=== PATIENT | female | born 1960 | race Hispanic/Latino ===

== ENCOUNTER 2018-06-14 18:54 | Inpatient (IN) | payer BC ==
--- NOTE | 2018-06-14 19:04 | C.PDOC ---
History Of Present Illness 57 year old female with no PMHx brought in by friends for a complaint of generalized weakness, not feeling well, and decreased appetite. As per friend, patient's neighbors noticed she has not appeared well over the past 4 days. Patient has a Hx of anxiety and depression, she used to see a psychiatrist and was on medication but she stopped taking them one year ago. Patient does not believe symptoms are due to depression but friend states symptoms are similar to her past depression. Denies chest pain, abdominal pain, SOB, fever, chills, nausea, vomiting, urinary symptoms, suicidal ideation, or homicidal ideation. Time Seen by Provider: 06/14/18 19:00 History Per: Patient, Other (Friend at bedside) History/Exam Limitations: no limitations Onset/Duration Of Symptoms: Days Current Symptoms Are (Timing): Still Present Recent travel outside of the [place]: No Past Medical History Reviewed: Historical Data, Nursing Documentation, Vital Signs - Medical History PMH: HTN Family History: States: Unknown Family Hx - Social History Hx Alcohol Use: No Hx Substance Use: No Review Of Systems Constitutional: Positive for: Weakness. Negative for: Fever, Chills Cardiovascular: Negative for: Chest Pain Respiratory: Negative for: Shortness of Breath Gastrointestinal: Negative for: Nausea, Vomiting, Abdominal Pain Genitourinary: Negative for: Dysuria, Hematuria Psych: Negative for: Suicidal ideation, Other (Homicidal ideation) Physical Exam - Physical Exam Appears: Non-toxic Skin: Normal Color, Warm, Dry Head: Atraumatic, Normacephalic Eye(s): bilateral: Normal Inspection, PERRL, EOMI Ear(s): Bilateral: Normal Nose: Normal Oral Mucosa: Moist Tongue: Normal Appearing Lips: Normal Appearing Throat: Normal, No Erythema, No Exudate, No Drooling, No Mass Neck: Normal, Supple, Other (no meningeal signs) Chest: Symmetrical, No Tenderness Cardiovascular: Rhythm Regular Respiratory: Normal Breath Sounds, No Rales, No Rhonchi, No Wheezing Gastrointestinal/Abdominal: Soft, No Tenderness Back: Normal Inspection, No CVA Tenderness, No Vertebral Tenderness, No Decreased ROM, No Paraspinal Tenderness Extremity: Normal ROM (x4) Extremity: Left: Atraumatic Pulses: Left Dorsalis Pedis: Normal, Right Dorsalis Pedis: Normal Neurological/Psych: Oriented x3, Normal Speech, Normal Cognition, Normal Cranial Nerves, No Cerebellar Signs, Normal Motor, Normal Sensation Gait: Steady Extremity: Right: No Drift, Left: No Drift, Upper: No Drift, Lower: No Drift ED Course And Treatment - Laboratory Results Result Diagrams: 06/14/18 19:39 06/14/18 19:39 Medical Decision Making Medical Decision Makin yr old F w/ hx of depression p/w friends w/ concern for pt. Per pt and friends bedside pt has had decreased PO intake x4d, and has been refusing to go outside. No SI or HI, but notable flat affect. No FND or neurological abnl on my exam. No other complaints. EK, sinus tachy, no STEMI Pending medical clearance 1017 Dehydrated by labs: Cr WNL. Hemoconentrated. Fluids running. Oral hydration as well. in NAD, UA+ will RX Pt medically clear To be admitted per Crisis to Dr. Rush [facility] (PSYCH) Pt agreeable Disposition - Disposition Disposition Time: 22:17 Condition: GOOD - Clinical Impression Clinical Impression: Major depression - Scribe Statement The provider has reviewed the documentation as recorded by the Scribobdulio Pineda All medical record entries made by the Scribe were at my direction and personally dictated by me. I have reviewed the chart and agree that the record accurately reflects my personal performance of the history, physical exam, medical decision making, and the department course for this patient. I have also personally directed, reviewed, and agree with the discharge instructions and disposition.
[2018-06-14] MEDS ORDERED: Sodium Chloride 0.9% 1,000 ML IV SCH (19:30)
[2018-06-14 19:44] LABS: BASO # 0.1 K/uL (0.0-0.2); BASO % 0.8 % (0.0-2.0); HEMOGLOBIN 16.4 g/dL (11.0-16.0); LYMPH # 1.3 K/uL (1.0-4.3); LYMPH % 14.4 % (20.0-40.0); MEAN CORPUSCULAR HEMOGLOBIN 28.3 pg (27.0-31.0); MEAN CORPUSCULAR HGB CONC 34.4 g/dL (33.0-37.0); MEAN PLATELET VOLUME 9.5 fL (7.2-11.7); MONO # 0.9 K/uL (0.0-0.8); MONO % 9.6 % (0.0-10.0); NEUT # 6.8 K/uL (1.8-7.0); NEUT % 75.2 % (50.0-75.0); NRBC % 0.1 % (0.0-2.0); RBC 5.79 Mil/uL (3.80-5.20); RED CELL DISTRIBUTION WIDTH 13.7 % (11.5-14.5); WHITE BLOOD COUNT 9.1 K/uL (4.8-10.8)
[2018-06-14 19:47] LABS: MEAN CELL VOLUME 82.3 fL (81.0-99.0)
[2018-06-14 19:57] LABS: ACETAMINOPHEN < 10.0 ug/mL (10.0-30.0); SALICYLATE < 1.0 mg/dL 1
[2018-06-14 19:59] LABS: ALB/GLOB RATIO 1.4 (1.0-2.1); ALBUMIN 4.8 g/dL (3.5-5.0); ALT/SGPT 40 U/L (9-52); AST/SGOT 45 U/L (14-36); BLOOD UREA NITROGEN 34 mg/dL (7-17); CALCIUM 9.8 mg/dl (8.6-10.4); GFR NON-AFRICAN AMERICAN > 60
[2018-06-14] MEDS ORDERED: Potassium Chloride 20 mEq 100 ML ONE (20:51)
[2018-06-14 22:07] LABS: URINE AMORPHOUS SEDIMENT RARE /ul (<OCC); URINE BACTERIA RARE (<OCC); URINE BILIRUBIN NEGATIVE (NEGATIVE); URINE BLOOD 2+ (NEGATIVE); URINE CLARITY Hazy (Clear); URINE COLOR Yellow (YELLOW); URINE GLUCOSE (UA) NORMAL (Normal); URINE LEUKOCYTE ESTERASE 2+ Leu/uL (Negative); URINE PROTEIN 1+ mg/dL (NEGATIVE); URINE UROBILINOGEN NORMAL mg/dL (0.2-1.0)
[2018-06-14 22:14] LABS: BARBITURATES, UR NEGATIVE (NEGATIVE); BENZODIAZEPINES, UR NEGATIVE (NEGATIVE); OPIATES, UR NEGATIVE (NEGATIVE); PHENCYCLIDINE, UR NEGATIVE (NEGATIVE)
--- NOTE | 2018-06-14 23:55 | PCM.BM ---
<Kevan Padilla - Last Filed: 06/14/18 23:51> Treatment Plan Problems - Problems identified on initial assessmt MAJOR DEPRESSIVE DISORDER Date Initiated: 06/14/18 Time Initiated: 23:45 Assessment reference: NA Status: Active Treatment assets and liabiliti Patient Assests: cooperative, self-reliant, ADL independent, negotiates basic needs Patient Liabilities: live alone, poor support system, medical problems - Milieu Protocol Maintain good personal hygiene: daily Encourage regular showers, daily Remind patient to perform daily oral care, daily Assist patient to perform ADL's Maintain personal safety: every shift Educate patient to report safety concerns to staff, every shift Monitor environment for contraband/sharps Medication safety: Monitor for expected outcome, potential side effects: every shift, Assess barriers to learning: every shift, Assess readiness for medication education: every shift <Catrachita Ramos - Last Filed: 06/15/18 11:11> - Diagnosis (1) Major depression Status: Acute Interventions: 06/15/18 11:11 * Assess/adjust medications daily and /or as needed * See patient on an individual basis 7x/week to assess symptoms of depression * Monitor for side effects & effectiveness of medications * <Albertina Villalobos - Last Filed: 06/15/18 12:39> Family Contact Family involvement: Dirk/SO not involved Family contact name: Jared Sheehan Family contacted how many times per week?: 1 - Goals for Treatment Patient goals for treatment: "I don't know." Discharge/Continuing Care - Education Needs Education Needs: Patient Medication, Patient Coping Skills - Discharge Discharge Criteria: Tolerates medication w/o severe side effects, Reduction of target symptoms Discharge to:: Home - Treatment Team Participation Discussed with Family/SO: No Was Patient/Family/SO present at Treatment Team Meeting: Yes
[2018-06-15 01:31] LABS: CK-MB 0.85 ng/mL (0.0-3.38); TROPONIN I 0.015 ng/mL (0.00-0.120)
[2018-06-15] MEDS ORDERED: Aluminum Hydroxide/Magnesium Hydroxide Susp (30 mL) PO ONE (04:10)
--- NOTE | 2018-06-15 10:17 | PCM.PSYCH ---
Initial Psychiatric Evaluation - Initial Psychiatric Evaluation Type of Admission: Voluntary Legal Status: Capacity History of Present Illness and Precipitating Events: Pt is a 57 year old female who is single, lives alone, currently unemployed, was escorted to [facility] by her friend, because of increasingly depressed mood and was disorganized behavior. Patient was superficially cooperative and remained guarded about the details throughout the interview. She appeared paranoid, delusional and internally preoccupied. Pt states that she is here because she is feeling weak, has no appetite and has trouble sleeping for the past 4 days. She is a little nauseous and vomited a little last night. Pt denies fever, chills or cough. Pt has a history of anxiety that was diagnosed around 10 years ago. She was on medication for the anxiety but discontinued 1 year ago and cannot recall the name of the medication. Pt has been hospitalized for anxiety 2 times in the past. She was last hospitalized 13 years ago and stayed for 3-4 days. Pt denies having a history of depression but her friend who is also her power of prosecuting attorney stated that she has had 1 depressive episode in the past with similar symptoms. Pt states that concentrating is hard and she has lost interest in things solely because she is not feeling well currently. she appeared depressed, hopeless, helpless, isolated and withdrawn. However she denies any suicidal ideation or any homicidal ideation. She denies any auditory or visual hallucinations or any paranoia. Pt denies use of alcohol, tobacco products, or illicit substances including heroin, marijuana, or cocaine. Past medical history: Denies Allergies: Levofloxacin, moxifloxacin HCl, amoxicillin trihydrate Surgical history: Lipoma Family psychiatric history: Denies Psychiatric history: Denies Current Medications: Active Medications Generic Name Dose Route Start Last Admin Trade Name Freq PRN Reason Stop Dose Admin Sodium Chloride 1,000 mls @ 100 mls/hr 06/14/18 19:30 06/14/18 19:41 Sodium Chloride 0.9% IV 100 mls/hr .Q10H REG Administration Influenza Virus Vaccine 60 mcg 06/16/18 10:20 Fluzone Quad [id number] IM 06/16/18 10:21 .ONCE ONE Pneumococcal Polyvalent Vaccine 0.5 ml 06/16/18 10:00 Pneumovax 23 Vaccine IM 06/16/18 10:01 .ONCE ONE Past Psychiatric History - Past Psychiatric History Previous Treatment History: Inpatient Pertinent Medical Hx (Current Medical&Sleep Prob, Allergies): Allergies Allergy/AdvReac Type Severity Reaction Status Date / Time levofloxacin [From Levaquin] Allergy Verified 06/14/18 19:15 moxifloxacin HCl Allergy Verified 06/14/18 19:15 [From Avelox] amoxicillin trihydrate AdvReac Verified 06/14/18 19:15 [From Augmentin] potassium clavulanate AdvReac Verified 06/14/18 19:15 [From Augmentin] decongestents Allergy Uncoded 06/14/18 19:15 steroids Allergy Uncoded 06/14/18 19:15 No Known Home Med 06/14/18 Review of Systems - Review of Systems All systems: reviewed and no additional remarkable complaints except - Psychiatric Psychiatric: Anxiety, Behavioral Changes, Depression, Hopelessness, Irritability, Suicidal Ideation Mental Status Examination - Personal Presentation Personal Presentation: Looks stated age - Affect Affect: Constricted, Depressed - Motor Activity Motor Activity: Psychomotor Retardation - Reliability in Providing Information Reliability in Providing Information: Poor, due to alteration in thoughts, Poor, due to altered mood - Speech Speech: Disorganized - Mood Mood: Depressed, Anxious - Formal Thought Process Formal Thought Process: Delusions, Paranoia, Loosening of associations - Obsessions/Compulsions Obsessions: No Compulsions: No - Cognitive Functions Orientation: Person, Place, Situation, Time Sensorium: Alert Attention/Concentration: Attentive Abstract Thinking: [place] Estimate of Intelligence: Below average Judgement: Imparied, as evidence by: Poor judgement, Imparied, as evidence by: Lack of insight into illness - Risk Risk: Diminished functioning - Limitations Limitations: Living alone DSM 5 DX - DSM 5 DSM 5 Diagnosis: Major depressive disorder recurrent severe with psychotic features Rule out schizoaffective disorder depressive type - Recommended/Plan of Treatment Treatment Recommendations and Plan of Treatment: Major depressive disorder recurrent severe with psychotic features Rule out schizoaffective disorder depressive type CBT psychoeducation Supportive therapy Trazodone 50 mg by mouth daily at bedtime Paxil 10 mg by mouth twice a day Seroquel 25 mg by mouth twice a day Hydroxyzine 25 mg by mouth every 6 hours when necessary UTI Start antibiotics Low potassium Replace with K dur - Smoking Cessation Smoking Cessation Initiated: No
--- NOTE | 2018-06-15 12:26 | CARD ---
APPROVED REPORT Date of service: 06/14/2018 EKG Measurement Heart [id number] CT [id number] <Conclusion> Sinus tachycardia T wave abnormality, consider inferior ischemia Abnormal ECG
[2018-06-16 08:32] LABS: BLOOD UREA NITROGEN 11 mg/dL (7-17); CALCIUM 8.2 mg/dl (8.6-10.4); GFR NON-AFRICAN AMERICAN > 60
[2018-06-16] MEDS ORDERED: Pneumococcal 23-Valent Vaccine IM ONE (10:00)
[2018-06-16] MEDS ORDERED: Influenza Vaccine 60 MCG/0.5 ML SYR (3 yr & up) IM ONE (10:20)
--- NOTE | 2018-06-16 12:50 | PCM.PYCHPN ---
Psychiatric Progress Note - Psychiatric Progress Note Patient seen today, length of contact: 15 min Patient Chief Complaint: I'm feeling down.' Problems Identified/Issues Discussed: Patient seen and evaluated, chart reviewed and discussed with the nurse. She appears depressed, sad and withdrawn. However she still denies any depressed mood or any suicidal ideation or homicidal ideation. She still appears paranoid, delusional and internally preoccupied. However she denies any auditory or visual hallucinations. Stat she is partially compliant with medications and refusing to take few medications. She needs to stay longer for stabilization of her symptoms Supportive therapy and psychoeducation were given. Medication Change: Yes Medical Record Reviewed: Yes Mental Status Examination - Cognitive Function Orientation: Person, Place, Situation, Time Memory: Intact Attention: WNL Concentration: Poor Association: Loose Fund of Knowledge: Poor - Mood Mood: Depressed, Anxious - Affect Affect: Constricted, Depressed - Formal Thought Process Formal Thought Process: Delusions, Paranoia, Loosening of associations - Suicidal Ideation Suicidal Ideation: No - Homicidal Ideation Homicidal Ideation: No Goal/Treatment Plan - Goal/Treatment Plan Need for Continued Stay: Severe depression anxiety, Severe functional impairment Progress Toward Problem(s) and Goals/Treatment Plan: Major depressive disorder recurrent severe with psychotic features Rule out schizoaffective disorder depressive type CBT psychoeducation Supportive therapy Trazodone 50 mg by mouth daily at bedtime D/C Paxil 10 mg by mouth twice a day Start Zoloft 25 mg daily Increase Seroquel by mouth twice a day Hydroxyzine 25 mg by mouth every 6 hours when necessary UTI Start antibiotics Low potassium Replace with K dur - Smoking Cessation Smoking Cessation Initiated: No
--- NOTE | 2018-06-16 12:54 | CARD ---
APPROVED REPORT Date of service: 06/15/2018 EKG Measurement Heart [id number] ME [id number] <Conclusion> Sinus tachycardia with occasional premature ventricular complexes ST & T wave abnormality, consider inferior ischemia Abnormal ECG
[2018-06-16] MEDS: Potassium Chloride 20 mEq ER Tab PO SCH ×4 (15:45→20:41)
--- NOTE | 2018-06-16 16:35 | CP.PCM.CON ---
<EvaristoKirby steven - Last Filed: 06/16/18 16:54> History of Present Illness - History of Present Illness History of Present Illness: medical consult for low potassium this patient is a 57yo F w/ no PMhx who is coming into [facility] psychiatry for depression/anxiety. The patient states that for the past 2 weeks she has felt much more lethargic, down in the dumps, with the wish to hurt herself which is why she eventually came to the hospital. She denies any symptoms currently other than depressive/anxious symptoms. Denies AV Hallucinations, or current SI/HI. She denies fevers/chills, PEREZ, CP, SOB, abdominal pain, N/V/D dysuria,freq,urg or lower extremity swelling/pain . Patient has never had a colonoscopy. Pap was 2 years ago, never abnormal. Mammograms every year never abnormal. Pmhx: Depression/anxiety not on treatment Meds: None Allergies: prednisone, levofloxacin, moxifloxacin, amoxicillin (mostly antibiotic related, none anaphylactic) FamHx: Father with CHF/HTN, in late 90s, denies other SurgHx: Lipoma removal Social: Lives alone, friend is power of corporate associate attorney, denies smoking/etoh/illicit drug use ever. independent in all IADL/ADL Review of Systems - Constitutional Constitutional: As Per HPI - EENT Eyes: As Per HPI Ears: As Per HPI Nose/Mouth/Throat: As Per HPI - Breasts Breasts: As Per HPI - Cardiovascular Cardiovascular: As Per HPI - Respiratory Respiratory: As Per HPI - Gastrointestinal Gastrointestinal: As Per HPI - Genitourinary Genitourinary: As Per HPI - Reproductive: Female Reproductive:Female: As Per HPI Past Patient History - Infectious Disease Hx of Infectious Diseases: None - Past Social History Smoking Status: Never Smoked - CARDIAC Hx Hypertension: Yes - PULMONARY Hx Tuberculosis: No - NEUROLOGICAL HX Cerebrovascular Accident: No Hx Seizures: No - HEENT Hx HEENT Problems: No - RENAL Hx Chronic Kidney Disease: No - ENDOCRINE/METABOLIC Hx Endocrine Disorders: No - HEMATOLOGICAL/ONCOLOGICAL Hx Cancer: No Hx Human Immunodeficiency Virus (HIV): No - INTEGUMENTARY Hx Dermatological Problems: No - MUSCULOSKELETAL/RHEUMATOLOGICAL Hx Musculoskeletal Disorders: No - GASTROINTESTINAL Hx Gastrointestinal Disorders: No - GENITOURINARY/GYNECOLOGICAL Hx Sexually Transmitted Disorders: No - PSYCHIATRIC Hx Substance Use: No - SURGICAL HISTORY Hx Surgeries: No - ANESTHESIA Hx Anesthesia: No Hx Anesthesia Reactions: No Hx Malignant Hyperthermia: No Meds Allergies/Adverse Reactions: Allergies Allergy/AdvReac Type Severity Reaction Status Date / Time levofloxacin [From Levaquin] Allergy Verified 06/14/18 19:15 moxifloxacin HCl Allergy Verified 06/14/18 19:15 [From Avelox] amoxicillin trihydrate AdvReac Verified 06/14/18 19:15 [From Augmentin] potassium clavulanate AdvReac Verified 06/14/18 19:15 [From Augmentin] decongestents Allergy Uncoded 06/14/18 19:15 steroids Allergy Uncoded 06/14/18 19:15 - Medications Medications: Current Medications Hydroxyzine HCl (Atarax) 25 mg PO Q6 PRN PRN Reason: Agitation Nitrofurantoin Macrocrystals (Macrobid) 100 mg PO Q12H [facility]; Protocol Last Admin: 06/16/18 10:43 Dose: 100 mg Potassium Chloride (K-Dur 20 Meq Er Tab) 40 meq PO DAILY REG Last Admin: 06/16/18 15:45 Dose: 40 meq Potassium Chloride (K-Dur 20 Meq Er Tab) 40 meq PO Q4H REG Stop: 06/17/18 02:30 Quetiapine Fumarate (Seroquel) 50 mg PO HS REG Quetiapine Fumarate (Seroquel) 25 mg PO DAILY [facility] Sertraline HCl (Zoloft) 25 mg PO DAILY REG Trazodone HCl (Desyrel) 50 mg PO HS [facility] Last Admin: 06/15/18 21:59 Dose: Not Given Physical Exam - Constitutional Appears: Well, Non-toxic, Chronically Ill - Head Exam Head Exam: ATRAUMATIC - Eye Exam Eye Exam: EOMI, Normal appearance, PERRL. absent: Scleral icterus Pupil Exam: PERRL - ENT Exam ENT Exam: Mucous Membranes Moist - Neck Exam Neck exam: Positive for: Full Rom. Negative for: Lymphadenopathy - Respiratory Exam Respiratory Exam: Clear to Auscultation Bilateral, NORMAL BREATHING PATTERN. absent: Rhonchi, Wheezes, Respiratory Distress - Cardiovascular Exam Cardiovascular Exam: REGULAR RHYTHM, +S1, +S2 - GI/Abdominal Exam GI & Abdominal Exam: Normal Bowel Sounds, Soft - Rectal Exam Rectal Exam: Deferred - Extremities Exam Extremities exam: Positive for: full ROM. Negative for: calf tenderness - Back Exam Back exam: NORMAL INSPECTION. absent: CVA tenderness (L), CVA tenderness (R) - Neurological Exam Neurological exam: Alert, CN II-XII Intact, Normal Gait, Oriented x3 - Psychiatric Exam Psychiatric exam: Normal Affect - Skin Skin Exam: Warm Results - Vital Signs Recent Vital Signs: Last Vital Signs Temp 98.9 F 06/16/18 06:43 Pulse 93 H 06/16/18 15:50 Resp 18 06/16/18 06:43 BP 108/64 06/16/18 15:50 Pulse Ox 100 06/14/18 23:17 - Labs Result Diagrams: 06/14/18 19:39 06/16/18 07:46 Labs: Laboratory Results - last 24 hr 06/16/18 07:46 Sodium 134 Potassium 2.6 L Chloride 94 L Carbon Dioxide 31 H Anion Gap 13 BUN 11 Creatinine 0.6 L Est GFR ( Amer) > 60 Est GFR (Non-Af Amer) > 60 Random Glucose 144 H Calcium 8.2 L Assessment & Plan - Assessment and Plan (Free Text) Assessment: 57yo F consulted for hypokalemia Hypokalemia -k 2.6; will have been repleted 120 meq in total today -f/u mag and phos -replete mag/phosh low -f/u EKG -transfer to telemetry Depression/Anxiety -patient will continue with psychiatric tx as per psychiatry; thank you for your help Proph -patient does not need GI prophylaxis -patient is ambulatory; SCD; encourage ambulation -heart healthy diet Case discussed and seen with Dr. Marycarmen Nazario PGY3 <Milton Conroy - Last Filed: 06/16/18 18:39> Meds - Medications Medications: Current Medications Hydroxyzine HCl (Atarax) 25 mg PO Q6 PRN PRN Reason: Agitation Potassium Chloride/Dextrose/Sod Cl (Potassium Chl 40 Meq In D5-1/2ns) 1,000 mls @ 40 mls/hr IV .Q24H REG Stop: 06/17/18 04:00 Nitrofurantoin Macrocrystals (Macrobid) 100 mg PO Q12H REG; Protocol Last Admin: 06/16/18 10:43 Dose: 100 mg Potassium Chloride (K-Dur 20 Meq Er Tab) 40 meq PO DAILY REG Last Admin: 06/16/18 15:45 Dose: 40 meq Potassium Chloride (K-Dur 20 Meq Er Tab) 40 meq PO Q4H REG Stop: 06/17/18 02:30 Quetiapine Fumarate (Seroquel) 50 mg PO HS REG Quetiapine Fumarate (Seroquel) 25 mg PO DAILY REG Sertraline HCl (Zoloft) 25 mg PO DAILY REG Trazodone HCl (Desyrel) 50 mg PO HS REG Last Admin: 06/15/18 21:59 Dose: Not Given Results - Vital Signs Recent Vital Signs: Last Vital Signs Temp 98.9 F 06/16/18 06:43 Pulse 93 H 06/16/18 15:50 Resp 18 06/16/18 06:43 BP 108/64 06/16/18 15:50 Pulse Ox 100 06/14/18 23:17 - Labs Result Diagrams: 06/14/18 19:39 06/16/18 07:46 Labs: Laboratory Results - last 24 hr 06/16/18 07:46 Sodium 134 Potassium 2.6 L Chloride 94 L Carbon Dioxide 31 H Anion Gap 13 BUN 11 Creatinine 0.6 L Est GFR ( Amer) > 60 Est GFR (Non-Af Amer) > 60 Random Glucose 144 H Calcium 8.2 L Attending/Attestation - Attestation I have personally seen and examined this patient.: Yes I have fully participated in the care of the patient.: Yes I have reviewed all pertinent clinical information: Yes Notes (Text): 06/16/18 18:34 Medical attending: Patient was seen and examined by me with the medical billing clerk. Reviewed the above plan by the resident and agree with the above Additional K will be given as well as well. We also need to check a Mg level in case this is low and needs to be replaced. The patient will need repeat EKG as well. Patient does not report body aches but does say she feels weak and tired. She will be moved to telemetry under medical service thank you Milton Conroy
[2018-06-16] MEDS: Potassium Chl 40 mEq in D5-1/2 1,000 ML IV SCH ×2 (17:58→20:41)
[2018-06-16] MEDS ORDERED: Magnesium Oxide 400 mg Tab UD PO STA (19:48)
[2018-06-16] MEDS ORDERED: Potassium & Sodium Phosphate PO STA (19:50)
[2018-06-16] MEDS ORDERED: Potassium Phosphate 21 MMOLE in Sodium Chloride 0.9% 250 ML IV ONE (20:01)
[2018-06-16] MEDS: Magnesium Sulfate 1 gm in D5W 1 GM/100 ML BAG IVPB SCH ×2 (20:41→21:13)
[2018-06-17] MEDS: Potassium Chloride 20 mEq ER Tab PO SCH ×2 (00:51→10:02)
[2018-06-17 02:17] LABS: ALB/GLOB RATIO 1.2 (1.0-2.1); ALBUMIN 2.9 g/dL (3.5-5.0); ALT/SGPT 29 U/L (9-52); AST/SGOT 30 U/L (14-36); BLOOD UREA NITROGEN 5 mg/dL (7-17); CALCIUM 7.6 mg/dl (8.6-10.4); GFR NON-AFRICAN AMERICAN > 60
[2018-06-17] MEDS ORDERED: Potassium Phosphate 15 MMOLE in Sodium Chloride 0.9% 250 ML IV ONE ×2 (02:50→08:27)
[2018-06-17] MEDS: Potassium Chl 40 mEq in D5-1/2 1,000 ML IV SCH (11:00)
[2018-06-17 14:14] LABS: ALB/GLOB RATIO 1.2 (1.0-2.1); ALBUMIN 2.8 g/dL (3.5-5.0); ALT/SGPT 30 U/L (9-52); AST/SGOT 31 U/L (14-36); BLOOD UREA NITROGEN 6 mg/dL (7-17); GFR NON-AFRICAN AMERICAN > 60
--- NOTE | 2018-06-17 15:03 | CP.PCM.PN ---
<Alessio Angel - Last Filed: 06/17/18 14:58> Subjective - Date & Time of Evaluation Date of Evaluation: 06/17/18 Time of Evaluation: 08:00 - Subjective Subjective: Alessio Angel PGY1 Progress note for Dr. Conroy Pt was examined at bedside this morning. She reports feeling weak and tired. She also reports nausea. Pt denies chest pain, palpitations, dizziness, vomiting, abdominal pain, shortness of breath. Objective - Vital Signs/Intake and Output Vital Signs (last 24 hours): Temp Pulse Resp BP Pulse Ox 98.3 F 116 H 20 96/65 L 98 06/17/18 07:30 06/17/18 08:26 06/17/18 07:30 06/17/18 07:30 06/17/18 07:30 - Medications Medications: Current Medications Hydroxyzine HCl (Atarax) 25 mg PO Q6 PRN PRN Reason: Agitation Potassium Chloride/Dextrose/Sod Cl (Potassium Chl 40 Meq In D5-1/2ns) 1,000 mls @ 40 mls/hr IV .Q24H [facility] Last Admin: 06/17/18 11:00 Dose: Not Given Nitrofurantoin Macrocrystals (Macrobid) 100 mg PO Q12H [facility]; Protocol Last Admin: 06/17/18 10:02 Dose: 100 mg Ondansetron HCl (Zofran Inj) 4 mg IVP Q6H PRN PRN Reason: Nausea/Vomiting Last Admin: 06/17/18 14:41 Dose: 4 mg Quetiapine Fumarate (Seroquel) 50 mg PO [facility] Last Admin: 06/16/18 21:14 Dose: Not Given Quetiapine Fumarate (Seroquel) 25 mg PO DAILY [facility] Last Admin: 06/17/18 10:01 Dose: Not Given Sertraline HCl (Zoloft) 25 mg PO DAILY [facility] Last Admin: 06/17/18 10:03 Dose: Not Given Trazodone HCl (Desyrel) 50 mg PO [facility] Last Admin: 06/16/18 21:14 Dose: Not Given - Labs Labs: 06/14/18 19:39 06/17/18 13:53 - Constitutional Appears: Well, In Acute Distress - Head Exam Head Exam: ATRAUMATIC, NORMOCEPHALIC - Eye Exam Eye Exam: EOMI, Normal appearance - ENT Exam ENT Exam: Mucous Membranes Moist - Respiratory Exam Respiratory Exam: Clear to Ausculation Bilateral, NORMAL BREATHING PATTERN. absent: Rales, Rhonchi, Wheezes - Cardiovascular Exam Cardiovascular Exam: REGULAR RHYTHM, +S1, +S2. absent: Gallop, Rubs, Murmur - GI/Abdominal Exam GI & Abdominal Exam: Soft, Normal Bowel Sounds. absent: Distended, Tenderness - Extremities Exam Extremities Exam: Normal Inspection. absent: Pedal Edema - Neurological Exam Neurological Exam: Alert, Awake, Oriented x3 - Psychiatric Exam Psychiatric exam: Depressed Assessment and Plan - Assessment and Plan (Free Text) Assessment: 57yo F consulted for hypokalemia Plan: Hypokalemia - K 3.5 - Mg 1.8 - P 1.1 - given K Phosphate 15mmole - EKG NSR, prolonged QT - transfer to telemetry Depression/Anxiety - patient will continue with psychiatric tx as per psychiatry; help appreciated PPx - GI: not indicated - DVT: SCDs - HHD Case discussed and seen with Dr. Conroy <Milton Conroy - Last Filed: 06/17/18 15:14> Objective - Vital Signs/Intake and Output Vital Signs (last 24 hours): Temp Pulse Resp BP Pulse Ox 98.3 F 116 H 20 96/65 L 98 06/17/18 07:30 06/17/18 08:26 06/17/18 07:30 06/17/18 07:30 06/17/18 07:30 - Medications Medications: Current Medications Hydroxyzine HCl (Atarax) 25 mg PO Q6 PRN PRN Reason: Agitation Potassium Chloride/Dextrose/Sod Cl (Potassium Chl 40 Meq In D5-1/2ns) 1,000 mls @ 40 mls/hr IV .Q24H [facility] Last Admin: 06/17/18 11:00 Dose: Not Given Nitrofurantoin Macrocrystals (Macrobid) 100 mg PO Q12H [facility]; Protocol Last Admin: 06/17/18 10:02 Dose: 100 mg Ondansetron HCl (Zofran Inj) 4 mg IVP Q6H PRN PRN Reason: Nausea/Vomiting Last Admin: 06/17/18 14:41 Dose: 4 mg Quetiapine Fumarate (Seroquel) 50 mg PO HS [facility] Last Admin: 06/16/18 21:14 Dose: Not Given Quetiapine Fumarate (Seroquel) 25 mg PO DAILY [facility] Last Admin: 06/17/18 10:01 Dose: Not Given Sertraline HCl (Zoloft) 25 mg PO DAILY [facility] Last Admin: 06/17/18 10:03 Dose: Not Given Trazodone HCl (Desyrel) 50 mg PO [facility] Last Admin: 06/16/18 21:14 Dose: Not Given - Labs Labs: 06/14/18 19:39 06/17/18 13:53 Attending/Attestation - Attestation I have personally seen and examined this patient.: Yes I have fully participated in the care of the patient.: Yes I have reviewed all pertinent clinical information, including history, physical exam and plan: Yes Notes (Text): 06/17/18 15:14 Medical attending: Patient was seen and examined by me, agrees the above note by the medical technologist hematology. The patient seemed to be much more pleasant affect we saw her today. She said that she still felt somewhat tired and fatigued however not as serious as it was yesterday. We still need to continue replaced the K, phosphorus, and magnesium. It is possible that she was eating properly and had poor nutrition encouraged her to eat as much as possible. We'll try to see if could add on Ensures for additional dietary supplement Her repeat 12-lead EKG showed NSR and she continues to be monitored on the telemetry unit for the time being. We encouraged ambulation Thank you very much, Milton Cnoroy
[2018-06-18] MEDS: Potassium Chl 40 mEq in D5-1/2 1,000 ML IV SCH ×2 (04:28→10:30)
[2018-06-18 08:35] LABS: ALB/GLOB RATIO 1.1 (1.0-2.1); ALBUMIN 2.6 g/dL (3.5-5.0); ALT/SGPT 28 U/L (9-52); AST/SGOT 25 U/L (14-36); BLOOD UREA NITROGEN 10 mg/dL (7-17); CALCIUM 7.4 mg/dl (8.6-10.4); GFR NON-AFRICAN AMERICAN > 60
--- NOTE | 2018-06-18 08:58 | CP.PCM.PN ---
Subjective - Date & Time of Evaluation Date of Evaluation: 06/18/18 Time of Evaluation: 08:45 - Subjective Subjective: Patient was seen and examined by me. Pending AM lab work The patient was talkative this morning. She explained that one of the IV bags caused a lot of burning yesterday Currently she is on IVF with KCL in it. Her diet is better, she denied chest pain, denied abdominal pain, denied bathroom problems, denied dizziness, denied headache I asked her about her diet before comming to the hospital and she explained it has been recently very poor but that previously she was very health concious person. She did not want to talk more about life events or stressor Objective - Vital Signs/Intake and Output Vital Signs (last 24 hours): Temp Pulse Resp BP Pulse Ox 98.5 F 101 H 20 119/76 98 06/17/18 23:10 06/18/18 07:45 06/17/18 23:10 06/17/18 23:10 06/17/18 23:10 Intake and Output: 06/18/18 06/18/18 06:59 18:59 Intake Total 820 Balance 820 - Medications Medications: Current Medications Hydroxyzine HCl (Atarax) 25 mg PO Q6 PRN PRN Reason: Agitation Potassium Chloride/Dextrose/Sod Cl (Potassium Chl 40 Meq In D5-1/2ns) 1,000 mls @ 40 mls/hr IV .Q24H [facility] Last Admin: 06/18/18 04:28 Dose: 40 mls/hr Nitrofurantoin Macrocrystals (Macrobid) 100 mg PO Q12H [facility]; Protocol Last Admin: 06/17/18 22:02 Dose: 100 mg Ondansetron HCl (Zofran Inj) 4 mg IVP Q6H PRN PRN Reason: Nausea/Vomiting Last Admin: 06/18/18 04:25 Dose: 4 mg Quetiapine Fumarate (Seroquel) 50 mg PO [facility] Last Admin: 06/17/18 22:04 Dose: Not Given Quetiapine Fumarate (Seroquel) 25 mg PO DAILY [facility] Last Admin: 06/17/18 10:01 Dose: Not Given Sertraline HCl (Zoloft) 25 mg PO DAILY [facility] Last Admin: 06/17/18 10:03 Dose: Not Given Trazodone HCl (Desyrel) 50 mg PO [facility] Last Admin: 06/17/18 22:03 Dose: Not Given - Labs Labs: 06/14/18 19:39 06/18/18 08:11 - Constitutional Appears: Unkempt, Chronically Ill - Head Exam Head Exam: NORMAL INSPECTION, NORMOCEPHALIC - Eye Exam Eye Exam: EOMI Pupil Exam: NORMAL ACCOMODATION - Respiratory Exam Respiratory Exam: Clear to Ausculation Bilateral, NORMAL BREATHING PATTERN - Cardiovascular Exam Cardiovascular Exam: REGULAR RHYTHM - GI/Abdominal Exam GI & Abdominal Exam: Soft, Normal Bowel Sounds. absent: Tenderness, Diminished Bowel Sounds - Neurological Exam Neurological Exam: Alert, Awake, Oriented x3 Neuro motor strength exam: Left Upper Extremity: 5, Right Upper Extremity: 5, Left Lower Extremity: 5, Right Lower Extremity: 5 - Psychiatric Exam Psychiatric exam: Depressed, Flat Affect Assessment and Plan - Assessment and Plan (Free Text) Assessment: 57yo F consulted for electrolyte depletion most notably hypokalemia Plan: Hypokalemia 06/18: Less fatigue and weakness than before. Yesterday Mg was a little low so this morning will give another Mg 1 gm. Currently on continuous IVF with KCL Depression/Anxiety 06/18: Today reported feeling somewhat better Patient will continue with psychiatric tx as per psychiatry PPx - GI: start protonix PO - DVT: SCDs - HHD
[2018-06-18] MEDS ORDERED: Magnesium Sulfate 1 gm in D5W 1 GM/100 ML BAG IVPB ONE ×2 (09:02→11:10)
[2018-06-19 09:30] LABS: BASO # 0.1 K/uL (0.0-0.2); BASO % 1.3 % (0.0-2.0); EOS # 0.2 K/uL (0.0-0.7); EOS % 2.2 % (0.0-4.0); LYMPH # 3.2 K/uL (1.0-4.3); LYMPH % 36.9 % (20.0-40.0); MEAN CELL VOLUME 84.1 fL (81.0-99.0); MEAN CORPUSCULAR HGB CONC 34.5 g/dL (33.0-37.0); MEAN PLATELET VOLUME 9.2 fL (7.2-11.7); MONO # 0.9 K/uL (0.0-0.8); MONO % 10.2 % (0.0-10.0); NEUT # 4.3 K/uL (1.8-7.0); NEUT % 49.4 % (50.0-75.0); RBC 3.92 Mil/uL (3.80-5.20); RED CELL DISTRIBUTION WIDTH 14.6 % (11.5-14.5); WHITE BLOOD COUNT 8.8 K/uL (4.8-10.8)
[2018-06-19 09:39] LABS: HEMOGLOBIN 11.4 g/dL (11.0-16.0)
[2018-06-19 09:54] LABS: ALB/GLOB RATIO 1.2 (1.0-2.1); ALBUMIN 2.9 g/dL (3.5-5.0); ALT/SGPT 31 U/L (9-52); AST/SGOT 24 U/L (14-36); BLOOD UREA NITROGEN 16 mg/dL (7-17); GFR NON-AFRICAN AMERICAN > 60
[2018-06-19] MEDS: Pantoprazole 20 mg EC Tab PO SCH (10:07)
--- NOTE | 2018-06-19 14:30 | CP.PCM.PN ---
<Kirby Nazario - Last Filed: 06/19/18 14:27> Subjective - Date & Time of Evaluation Date of Evaluation: 06/19/18 Time of Evaluation: 14:41 - Subjective Subjective: PGY3 Note for Dr. Conroy This patient was seen and examined at bedside; she states she feels better although does not really want to go back to psych because she like the telemtry floor more; denies fevers/chills, PEREZ, CP, SOb, abdominal pain, n?V/D, dyusria/freq/urg or lower extremity pain/swelling Objective - Vital Signs/Intake and Output Vital Signs (last 24 hours): Temp Pulse Resp BP Pulse Ox 98.5 F 101 H 20 109/72 97 06/19/18 08:15 06/19/18 08:15 06/19/18 08:15 06/19/18 08:15 06/19/18 08:15 Intake and Output: 06/19/18 06/19/18 06:59 18:59 Intake Total 330 Balance 330 - Medications Medications: Current Medications Hydroxyzine HCl (Atarax) 25 mg PO Q6 PRN PRN Reason: Agitation Nitrofurantoin Macrocrystals (Macrobid) 100 mg PO Q12H [facility]; Protocol Last Admin: 06/19/18 09:08 Dose: 100 mg Ondansetron HCl (Zofran Inj) 4 mg IVP Q6H PRN PRN Reason: Nausea/Vomiting Last Admin: 06/18/18 04:25 Dose: 4 mg Pantoprazole Sodium (Protonix Ec Tab) 20 mg PO DAILY [facility] Last Admin: 06/19/18 10:07 Dose: 20 mg Quetiapine Fumarate (Seroquel) 50 mg PO HS [facility] Last Admin: 06/18/18 22:00 Dose: Not Given Quetiapine Fumarate (Seroquel) 25 mg PO DAILY [facility] Last Admin: 06/19/18 10:09 Dose: Not Given Sertraline HCl (Zoloft) 25 mg PO DAILY [facility] Last Admin: 06/19/18 10:08 Dose: Not Given Trazodone HCl (Desyrel) [address] [facility] Last Admin: 06/18/18 22:00 Dose: Not Given - Labs Labs: 06/19/18 09:24 11/18/18 09:24 - Constitutional Appears: Well, Non-toxic - Head Exam Head Exam: ATRAUMATIC - Eye Exam Eye Exam: EOMI, Normal appearance, PERRL - ENT Exam ENT Exam: Mucous Membranes Moist - Neck Exam Neck Exam: Full ROM. absent: Lymphadenopathy - Respiratory Exam Respiratory Exam: Clear to Ausculation Bilateral, NORMAL BREATHING PATTERN. absent: Rales, Rhonchi, Wheezes - Cardiovascular Exam Cardiovascular Exam: REGULAR RHYTHM, +S1, +S2 - GI/Abdominal Exam GI & Abdominal Exam: Soft, Normal Bowel Sounds - Back Exam Back Exam: NORMAL INSPECTION. absent: CVA tenderness (L), CVA tenderness (R) - Neurological Exam Neurological Exam: Alert, Awake - Psychiatric Exam Psychiatric exam: Depressed. absent: Normal Affect, Normal Mood - Skin Skin Exam: Warm Assessment and Plan - Assessment and Plan (Free Text) Assessment: 57yo F originally admitted for depression to psychiatry, found to have severe hypokalemia 2/2 to malnutrition Hypokalemia/Hypomagnesemia/Hypophosphatemia; resolved - K 3.8; normalized - Mg 1.8 - patient can be transferred back to psych Depression/Anxiety - patient will continue with psychiatric tx as per psychiatry; help appreciated PPx - GI: not indicated - DVT: SCDs - HHD The patient is stable for transfer back to psych The patient should continue a normal diet as we feel this contributed to her hypokalemia recommended continue with ensure; patient has been chronically malnourished Spoke to Dr. khanna who is covering for Dr. Geronimo; stated if patient is medically case discussed with Dr. Marycarmen Nazario PGY3 <Milton Conroy H - Last Filed: 06/19/18 17:48> Objective - Vital Signs/Intake and Output Vital Signs (last 24 hours): Temp Pulse Resp BP Pulse Ox 97.9 F 117 H 20 124/80 98 06/19/18 15:10 06/19/18 15:10 06/19/18 15:10 06/19/18 15:10 06/19/18 15:10 Intake and Output: 06/19/18 06/19/18 06:59 18:59 Intake Total 330 Balance 330 - Medications Medications: Current Medications Hydroxyzine HCl (Atarax) 25 mg PO Q6 PRN PRN Reason: Agitation Nitrofurantoin Macrocrystals (Macrobid) 100 mg PO Q12H [facility]; Protocol Last Admin: 06/19/18 09:08 Dose: 100 mg Ondansetron HCl (Zofran Inj) 4 mg IVP Q6H PRN PRN Reason: Nausea/Vomiting Last Admin: 06/18/18 04:25 Dose: 4 mg Pantoprazole Sodium (Protonix Ec Tab) 20 mg PO DAILY [facility] Last Admin: 06/19/18 10:07 Dose: 20 mg Quetiapine Fumarate (Seroquel) [address] [facility] Last Admin: 06/18/18 22:00 Dose: Not Given Quetiapine Fumarate (Seroquel) 25 mg PO DAILY [facility] Last Admin: 06/19/18 10:09 Dose: Not Given Sertraline HCl (Zoloft) 25 mg PO DAILY [facility] Last Admin: 06/19/18 10:08 Dose: Not Given Trazodone HCl (Desyrel) [address] [facility] Last Admin: 06/18/18 22:00 Dose: Not Given - Labs Labs: 06/19/18 09:24 06/19/18 09:24 Attending/Attestation - Attestation I have personally seen and examined this patient.: Yes I have fully participated in the care of the patient.: Yes I have reviewed all pertinent clinical information, including history, physical exam and plan: Yes Notes (Text): 06/19/18 17:47 Medical attending: Patient was seen and examined by me. Agree with the above note by the resident Please also see my note as well Today the IVF with KCL was held. thank you Milton Conroy
[2018-06-20] MEDS: Pantoprazole 20 mg EC Tab PO SCH (09:06)
[2018-06-20 09:20] LABS: BLOOD UREA NITROGEN 14 mg/dL (7-17); GFR NON-AFRICAN AMERICAN > 60
[2018-06-20] MEDS ORDERED: Potassium Chloride 20 mEq ER Tab PO ONE ×2 (09:21→13:00)
--- NOTE | 2018-06-20 11:15 | PCM.PYCHPN ---
Psychiatric Progress Note - Psychiatric Progress Note Patient seen today, length of contact: 15 min Patient Chief Complaint: "I'm still sick" Problems Identified/Issues Discussed: The pt is seen, chart reviewed, case discussed with staff. The pt is NOT compliant with medications She needs more time to stabilize. Support given, psycho-education provided. After care discussed. She agreed to be transferred to and take meds, as she had been very disorganized and depressed/psychotic Not suicidal though Medication Change: Yes Medical Record Reviewed: Yes Mental Status Examination - Cognitive Function Orientation: Person, Place, Situation, Time Memory: Intact Attention: WNL Concentration: Poor Association: Loose Fund of Knowledge: Poor - Mood Mood: Depressed, Anxious - Affect Affect: Constricted, Depressed - Formal Thought Process Formal Thought Process: Paranoia, Loosening of associations - Suicidal Ideation Suicidal Ideation: No - Homicidal Ideation Homicidal Ideation: No Goal/Treatment Plan - Goal/Treatment Plan Need for Continued Stay: Severe depression anxiety, Discharge may exacerbated symptoms, Severe functional impairment Progress Toward Problem(s) and Goals/Treatment Plan: Continue meds Support and psychoed Transfer to [facility]
[2018-06-20] MEDS ORDERED: Magnesium Sulfate 1 gm/100 mL D5W IVPB ONE (12:15)
--- NOTE | 2018-06-20 14:31 | CP.PCM.PN ---
<Jany Perez - Last Filed: 06/20/18 15:20> Subjective - Date & Time of Evaluation Date of Evaluation: 06/20/18 Time of Evaluation: 10:40 - Subjective Subjective: PGY-1 Medicine Progress note for Dr. Capellan's service Patient seen and examined at bedside. Patient reports feeling like she has minim al energy. Patient states she has some mild abdominal pain. Patient is amenable to transferring back to psych floor after medical evaluation is completed. Patient reports constant ongoing nausea with anorexia and approximately 20-25 lb weight loss in one year. Patient denies fevers, chills, chest pain, sob, vomiting, constipation or diarrhea, and dysuria. Objective - Vital Signs/Intake and Output Vital Signs (last 24 hours): Temp Pulse Resp BP Pulse Ox 97.9 F 102 H 20 108/63 98 06/20/18 07:00 06/20/18 07:00 06/20/18 07:00 06/20/18 07:00 06/20/18 07:00 - Medications Medications: Current Medications Hydroxyzine HCl (Atarax) 25 mg PO Q6 PRN PRN Reason: Agitation Nitrofurantoin Macrocrystals (Macrobid) 100 mg PO Q12H [facility]; Protocol Last Admin: 06/20/18 09:09 Dose: 100 mg Ondansetron HCl (Zofran Inj) 4 mg IVP Q6H PRN PRN Reason: Nausea/Vomiting Last Admin: 06/18/18 04:25 Dose: 4 mg Pantoprazole Sodium (Protonix Ec Tab) 20 mg PO DAILY [facility] Last Admin: 06/20/18 09:06 Dose: Not Given Quetiapine Fumarate (Seroquel) 50 mg PO [facility] Last Admin: 06/18/18 22:00 Dose: Not Given Quetiapine Fumarate (Seroquel) 25 mg PO DAILY [facility] Last Admin: 06/20/18 09:08 Dose: Not Given Sertraline HCl (Zoloft) 25 mg PO DAILY [facility] Last Admin: 06/20/18 09:09 Dose: Not Given Trazodone HCl (Desyrel) 50 mg PO [facility] Last Admin: 06/18/18 22:00 Dose: Not Given - Labs Labs: 06/19/18 09:24 06/20/18 08:50 - Constitutional Appears: Non-toxic, No Acute Distress - Head Exam Head Exam: NORMAL INSPECTION, NORMOCEPHALIC - Eye Exam Eye Exam: EOMI, Normal appearance. absent: Nystagmus, Scleral icterus - ENT Exam ENT Exam: Mucous Membranes Dry - Respiratory Exam Respiratory Exam: Clear to Ausculation Bilateral, NORMAL BREATHING PATTERN. absent: Accessory Muscle Use, Rales, Rhonchi, Wheezes - Cardiovascular Exam Cardiovascular Exam: REGULAR RHYTHM, +S1, +S2. absent: Tachycardia, Murmur - GI/Abdominal Exam GI & Abdominal Exam: Soft, Tenderness, Normal Bowel Sounds. absent: Distended, Firm, Guarding, Rigid Additional comments: suprapubic tenderness - Extremities Exam Extremities Exam: Normal Inspection. absent: Calf Tenderness, Pedal Edema - Neurological Exam Neurological Exam: Alert, Awake, Oriented x3 - Psychiatric Exam Psychiatric exam: Normal Affect, Normal Mood - Skin Skin Exam: Intact, Normal Color Assessment and Plan - Assessment and Plan (Free Text) Assessment: 57yo F originally admitted for depression to psychiatry, found to have severe electrolyte disturbances 2/2 to malnutrition Plan: Electrolyte Disturbances Hypokalemia- 20 KCl oral and 10meq KCl via IVPB Hypomagnesemia- 1gm of Magneisum sulfate IVPB Hypophosphatemia- resolved Chronic Nausea and Weight Loss GI consulted- Dr. Cuenca- recommendations appreciated- concern for possible malignancy Zofran IVPB TSH normal Depression/Anxiety Psych eval pending after patient is medically cleared PPx GI ppx: not indicated DVT ppx: SCDs <Antonio Capellan - Last Filed: 06/20/18 18:25> Objective - Vital Signs/Intake and Output Vital Signs (last 24 hours): Temp Pulse Resp BP Pulse Ox 97.9 F 121 H 20 123/65 98 06/20/18 15:00 06/20/18 15:00 06/20/18 15:00 06/20/18 15:00 06/20/18 15:00 - Medications Medications: Current Medications Hydroxyzine HCl (Atarax) 25 mg PO Q6 PRN PRN Reason: Agitation Nitrofurantoin Macrocrystals (Macrobid) 100 mg PO Q12H [facility]; Protocol Last Admin: 06/20/18 09:09 Dose: 100 mg Ondansetron HCl (Zofran Inj) 4 mg IVP Q6H PRN PRN Reason: Nausea/Vomiting Last Admin: 06/18/18 04:25 Dose: 4 mg Pantoprazole Sodium (Protonix Ec Tab) 20 mg PO DAILY [facility] Last Admin: 06/20/18 09:06 Dose: Not Given Quetiapine Fumarate (Seroquel) 50 mg PO HS [facility] Last Admin: 06/19/18 22:00 Dose: Not Given Quetiapine Fumarate (Seroquel) 25 mg PO DAILY [facility] Last Admin: 06/20/18 09:08 Dose: Not Given Sertraline HCl (Zoloft) 25 mg PO DAILY [facility] Last Admin: 06/20/18 09:09 Dose: Not Given Trazodone HCl (Desyrel) 50 mg PO HS [facility] Last Admin: 06/19/18 22:00 Dose: Not Given - Labs Labs: 06/19/18 09:24 06/20/18 08:50 Attending/Attestation - Attestation I have personally seen and examined this patient.: Yes I have fully participated in the care of the patient.: Yes I have reviewed all pertinent clinical information, including history, physical exam and plan: Yes Notes (Text): seen and examined by me,patient lost about 20pounds in an year Patient is complaining of nausea,poor appetite and anorexia No history of colonoscopy or EGD in the past,denies f/h of colon ca patient with weight loss,anorexia and nausea is to r/o GI malignancy We will get GI consult d/w resident and I agree with the documentation of the resident
[2018-06-21 08:09] LABS: BASO # 0.1 K/uL (0.0-0.2); BASO % 1.1 % (0.0-2.0); EOS # 0.2 K/uL (0.0-0.7); EOS % 2.1 % (0.0-4.0); HEMOGLOBIN 11.1 g/dL (11.0-16.0); LYMPH # 3.1 K/uL (1.0-4.3); LYMPH % 39.9 % (20.0-40.0); MEAN CORPUSCULAR HGB CONC 34.1 g/dL (33.0-37.0); MEAN PLATELET VOLUME 8.6 fL (7.2-11.7); MONO # 0.8 K/uL (0.0-0.8); MONO % 10.2 % (0.0-10.0); NEUT # 3.6 K/uL (1.8-7.0); NEUT % 46.7 % (50.0-75.0); NRBC % 0.1 % (0.0-2.0); RBC 3.83 Mil/uL (3.80-5.20); RED CELL DISTRIBUTION WIDTH 14.7 % (11.5-14.5); WHITE BLOOD COUNT 7.8 K/uL (4.8-10.8)
[2018-06-21 08:21] LABS: ALB/GLOB RATIO 1.2 (1.0-2.1); ALBUMIN 2.9 g/dL (3.5-5.0); ALT/SGPT 47 U/L (9-52); AST/SGOT 45 U/L (14-36); BLOOD UREA NITROGEN 16 mg/dL (7-17); GFR NON-AFRICAN AMERICAN > 60
[2018-06-21] MEDS ORDERED: Propofol 10 mg/ml Inj (20 ML) ONE (09:29)
[2018-06-21] MEDS ORDERED: Lactated Ringer's 1,000 ML IV ONE (09:30)
[2018-06-21] MEDS: Pantoprazole 20 mg EC Tab PO SCH (10:45)
[2018-06-21] MEDS ORDERED: Peg-Electrolyte Oral Soln 4L (Golytely) PO ONE (11:30)
--- NOTE | 2018-06-21 14:01 | CP.PCM.PN ---
<Jany Perez - Last Filed: 06/21/18 13:58> Subjective - Date & Time of Evaluation Date of Evaluation: 06/21/18 Time of Evaluation: 11:00 - Subjective Subjective: PGY-1 Medicine Progress Note for Dr. Capellan's service Patient seen and examined at bedside. Patient reports ongoing nausea and lower a bdominal pain. Patient denies fevers, chills, chest pain, sob, vomiting, constipation or diarrhea, weakness, and dysuria. Objective - Vital Signs/Intake and Output Vital Signs (last 24 hours): Temp Pulse Resp BP Pulse Ox 98.0 F 90 17 120/67 100 06/21/18 09:45 06/21/18 10:15 06/21/18 10:15 06/21/18 10:15 06/21/18 10:15 - Medications Medications: Current Medications Bisacodyl (Dulcolax) 10 mg PO ONCE ONE Stop: 06/21/18 17:01 Hydroxyzine HCl (Atarax) 25 mg PO Q6 PRN PRN Reason: Agitation Ondansetron HCl (Zofran Inj) 4 mg IVP Q6H PRN PRN Reason: Nausea/Vomiting Last Admin: 06/18/18 04:25 Dose: 4 mg Pantoprazole Sodium (Protonix Ec Tab) 20 mg PO DAILY [facility] Last Admin: 06/21/18 10:45 Dose: 20 mg Quetiapine Fumarate (Seroquel) 50 mg PO HS [facility] Last Admin: 06/20/18 22:19 Dose: Not Given Quetiapine Fumarate (Seroquel) 25 mg PO DAILY [facility] Last Admin: 06/21/18 10:48 Dose: Not Given Sertraline HCl (Zoloft) 25 mg PO DAILY [facility] Last Admin: 06/21/18 10:48 Dose: Not Given Trazodone HCl (Desyrel) 50 mg PO [facility] Last Admin: 06/20/18 22:19 Dose: Not Given - Labs Labs: 06/21/18 07:56 06/21/18 07:56 - Additional Findings Additional findings: - Constitutional Appears: Non-toxic, No Acute Distress - Head Exam Head Exam: NORMAL INSPECTION, NORMOCEPHALIC - Eye Exam Eye Exam: EOMI, Normal appearance. absent: Nystagmus, Scleral icterus - ENT Exam ENT Exam: Mucous Membranes Dry - Respiratory Exam Respiratory Exam: Clear to Ausculation Bilateral, NORMAL BREATHING PATTERN. absent: Accessory Muscle Use, Rales, Rhonchi, Wheezes - Cardiovascular Exam Cardiovascular Exam: REGULAR RHYTHM, +S1, +S2. absent: Tachycardia, Murmur - GI/Abdominal Exam GI & Abdominal Exam: Soft, Tenderness, Normal Bowel Sounds. absent: Distended, Firm, Guarding, Rigid Additional comments: suprapubic tenderness - Extremities Exam Extremities Exam: Normal Inspection. absent: Calf Tenderness, Pedal Edema - Neurological Exam Neurological Exam: Alert, Awake, Oriented x3 - Psychiatric Exam Psychiatric exam: Normal Affect, Normal Mood - Skin Skin Exam: Intact, Normal Color Assessment and Plan - Assessment and Plan (Free Text) Assessment: 57yo F originally admitted for depression to psychiatry, found to have severe electrolyte disturbances 2/2 to malnutrition. Continued ongoing abdominal pain, nausea, weight loss warranted GI consult for EGD and CSPY. EGD showed gastritis, esophagitis, and possible candidiasis. Plan: Electrolyte Disturbances Hypokalemia- resolved Hypomagnesemia- resolved Hypophosphatemia- resolved Chronic Nausea and Weight Loss GI consulted- Dr. Cuenca- EGD showed gastritis, esophagitis, and possible candidasis. CSPY scheduled for tomorrow patient currently undergoing bowel prep Zofran IVPB TSH normal CEA 4.9 Depression/Anxiety Psych eval pending after patient is medically cleared PPx GI ppx: Protonix 40mg po daily DVT ppx: SCDs <Antonio Capellan - Last Filed: 06/22/18 09:25> Objective - Vital Signs/Intake and Output Vital Signs (last 24 hours): Temp Pulse Resp BP Pulse Ox 98.0 F 92 H 20 119/75 95 06/22/18 07:00 06/22/18 07:00 06/22/18 07:00 06/22/18 07:00 06/22/18 07:00 Intake and Output: 06/22/18 06/22/18 06:59 18:59 Intake Total 1000 Balance 1000 - Medications Medications: Current Medications Fluconazole (Diflucan) 200 mg PO DAILY [facility]; Protocol Last Admin: 06/21/18 15:48 Dose: 200 mg Hydroxyzine HCl (Atarax) 25 mg PO Q6 PRN PRN Reason: Agitation Ondansetron HCl (Zofran Inj) 4 mg IVP Q6H PRN PRN Reason: Nausea/Vomiting Last Admin: 06/18/18 04:25 Dose: 4 mg Pantoprazole Sodium (Protonix Ec Tab) 40 mg PO DAILY [facility] Potassium Chloride (K-Dur 20 Meq Er Tab) 20 meq PO ONCE ONE Stop: 06/22/18 15:01 Quetiapine Fumarate (Seroquel) 50 mg PO HS [facility] Last Admin: 06/21/18 21:44 Dose: Not Given Quetiapine Fumarate (Seroquel) 25 mg PO DAILY [facility] Last Admin: 06/21/18 10:48 Dose: Not Given Sertraline HCl (Zoloft) 25 mg PO DAILY [facility] Last Admin: 06/21/18 10:48 Dose: Not Given Trazodone HCl (Desyrel) 50 mg PO HS [facility] Last Admin: 06/21/18 21:44 Dose: Not Given - Labs Labs: 06/22/18 07:03 06/22/18 07:03 Attending/Attestation - Attestation I have personally seen and examined this patient.: Yes I have fully participated in the care of the patient.: Yes I have reviewed all pertinent clinical information, including history, physical exam and plan: Yes Notes (Text): seen and examined by me after EGD Finding discussed with the patient. she appreciate the care. She state that she was not able to eat well and always feel full. She agree to take diflucan and protonic and follow biopsy report as an out pt with Dr Cuenca she is going for colonoscopy tomorrow I agree with the resident
[2018-06-21] MEDS ORDERED: Pantoprazole 40 mg EC Tab PO SCH (14:03)
[2018-06-21] MEDS ORDERED: Bisacodyl 5mg EC Tab PO ONE (17:00)
[2018-06-21 19:38] LABS: BASO # 0.1 K/uL (0.0-0.2); BASO % 1.1 % (0.0-2.0); EOS # 0.1 K/uL (0.0-0.7); EOS % 2.2 % (0.0-4.0); HEMOGLOBIN 10.7 g/dL (11.0-16.0); LYMPH # 2.4 K/uL (1.0-4.3); LYMPH % 38.3 % (20.0-40.0); MEAN CELL VOLUME 85.5 fL (81.0-99.0); MEAN CORPUSCULAR HEMOGLOBIN 28.6 pg (27.0-31.0); MEAN CORPUSCULAR HGB CONC 33.5 g/dL (33.0-37.0); MEAN PLATELET VOLUME 8.4 fL (7.2-11.7); MONO # 0.7 K/uL (0.0-0.8); MONO % 11.4 % (0.0-10.0); NEUT # 2.9 K/uL (1.8-7.0); RBC 3.75 Mil/uL (3.80-5.20); WHITE BLOOD COUNT 6.2 K/uL (4.8-10.8)
[2018-06-21 20:11] LABS: ALB/GLOB RATIO 1.1 (1.0-2.1); ALBUMIN 2.9 g/dL (3.5-5.0); ALT/SGPT 54 U/L (9-52); AST/SGOT 52 U/L (14-36); BLOOD UREA NITROGEN 10 mg/dL (7-17); GFR NON-AFRICAN AMERICAN > 60
--- NOTE | 2018-06-21 22:26 | CARD ---
APPROVED REPORT Date of service: 06/17/2018 EKG Measurement Heart [id number] CT 132P32 [id number] <Conclusion> Normal sinus rhythm T wave abnormality, consider inferior ischemia Prolonged QT Abnormal ECG
[2018-06-22 07:34] LABS: ALB/GLOB RATIO 1.1 (1.0-2.1); ALBUMIN 2.8 g/dL (3.5-5.0); ALT/SGPT 61 U/L (9-52); AST/SGOT 51 U/L (14-36); BASO # 0.1 K/uL (0.0-0.2); BASO % 1.1 % (0.0-2.0); BLOOD UREA NITROGEN 6 mg/dL (7-17); EOS # 0.1 K/uL (0.0-0.7); EOS % 2.4 % (0.0-4.0); GFR NON-AFRICAN AMERICAN > 60; HEMOGLOBIN 10.7 g/dL (11.0-16.0); LYMPH # 2.7 K/uL (1.0-4.3); LYMPH % 43.4 % (20.0-40.0); MEAN CELL VOLUME 84.8 fL (81.0-99.0); MEAN CORPUSCULAR HEMOGLOBIN 28.8 pg (27.0-31.0); MEAN PLATELET VOLUME 8.3 fL (7.2-11.7); MONO # 0.8 K/uL (0.0-0.8); NEUT # 2.6 K/uL (1.8-7.0); NEUT % 41.1 % (50.0-75.0); NRBC % 0.1 % (0.0-2.0); RBC 3.7 Mil/uL (3.80-5.20); RED CELL DISTRIBUTION WIDTH 15.3 % (11.5-14.5); WHITE BLOOD COUNT 6.3 K/uL (4.8-10.8)
[2018-06-22] MEDS: Pantoprazole 40 mg EC Tab PO SCH ×2 (10:09→15:10)
[2018-06-22] MEDS ORDERED: Lactated Ringer's 500 ML IV ONE ×2 (11:02)
[2018-06-22] MEDS ORDERED: Propofol 10 mg/ml Inj (20 ML) ONE (11:03)
--- NOTE | 2018-06-22 14:58 | PCM.PYCHPN ---
Psychiatric Progress Note - Psychiatric Progress Note Patient seen today, length of contact: 15 min Patient Chief Complaint: "Same" Problems Identified/Issues Discussed: Seen again Transfer will be done now - there were some issues She finally agreed to take meds, "low dose" Support and psychoed given Mood is depressed, affect is odd, TP slowed Denies sxs but she is guarded Medication Change: Yes (start risperdal and lexapro) Medical Record Reviewed: Yes Mental Status Examination - Cognitive Function Orientation: Person, Place, Situation, Time Memory: Intact Attention: WNL Concentration: Poor Association: Loose Fund of Knowledge: Poor - Mood Mood: Depressed, Anxious - Affect Affect: Constricted, Depressed - Formal Thought Process Formal Thought Process: Paranoia, Loosening of associations - Suicidal Ideation Suicidal Ideation: No - Homicidal Ideation Homicidal Ideation: No Goal/Treatment Plan - Goal/Treatment Plan Need for Continued Stay: Severe depression anxiety, Discharge may exacerbated symptoms, Severe functional impairment Progress Toward Problem(s) and Goals/Treatment Plan: Start Lexapro and risperdal Support and psychoed Risks of meds discussed - she understood and agreed
[2018-06-22] MEDS ORDERED: Potassium Chloride 20 mEq ER Tab PO ONE (15:00)
--- NOTE | 2018-06-22 15:50 | CP.PCM.DIS ---
Provider - Provider Date of Admission: 06/14/18 22:18 Attending physician: Milton Conroy DO Consults: Dr. Cuenca Time Spent in preparation of Discharge (in minutes): 45 Hospital Course - Lab Results Lab Results: Micro Results 06/17/18 18:34 Urine,Clean Catch Urine Culture - Final Gram Positive Cocci Most Recent Lab Values WBC 6.3 K/uL (4.8-10.8) 06/22/18 07:03 RBC 3.70 Mil/uL (3.80-5.20) L 06/22/18 07:03 Hgb 10.7 g/dL (11.0-16.0) L 06/22/18 07:03 Hct 31.4 % (34.0-47.0) L 06/22/18 07:03 MCV 84.8 fL (81.0-99.0) 06/22/18 07:03 MCH 28.8 pg (27.0-31.0) 06/22/18 07:03 MCHC 34.0 g/dL (33.0-37.0) 06/22/18 07:03 RDW 15.3 % (11.5-14.5) H 06/22/18 07:03 Plt Count 370 K/uL (130-400) 06/22/18 07:03 MPV 8.3 fL (7.2-11.7) 06/22/18 07:03 Neut % (Auto) 41.1 % (50.0-75.0) L 06/22/18 07:03 Lymph % (Auto) 43.4 % (20.0-40.0) H 06/22/18 07:03 [place]ila % (Auto) 12.0 % (0.0-10.0) H 06/22/18 07:03 Eos % (Auto) 2.4 % (0.0-4.0) 06/22/18 07:03 Baso % (Auto) 1.1 % (0.0-2.0) 06/22/18 07:03 Neut # (Auto) 2.6 K/uL (1.8-7.0) 06/22/18 07:03 Lymph # (Auto) 2.7 K/uL (1.0-4.3) 06/22/18 07:03 [place]ila # (Auto) 0.8 K/uL (0.0-0.8) 06/22/18 07:03 Eos # (Auto) 0.1 K/uL (0.0-0.7) 06/22/18 07:03 Baso # (Auto) 0.1 K/uL (0.0-0.2) 06/22/18 07:03 Sodium 137 mmol/L (132-148) 06/22/18 07:03 Potassium 3.5 mmol/L (3.6-5.2) L 06/22/18 07:03 Chloride 100 mmol/L (98-107) 06/22/18 07:03 Carbon Dioxide 28 mmol/L (22-30) 06/22/18 07:03 Anion Gap 13 (10-20) 06/22/18 07:03 BUN 6 mg/dL (7-17) L 06/22/18 07:03 Creatinine 0.5 mg/dL (0.7-1.2) L 06/22/18 07:03 Est GFR ( Amer) > 60 06/22/18 07:03 Est GFR (Non-Af Amer) > 60 06/22/18 07:03 Random Glucose 82 mg/dL (65-105) 06/22/18 07:03 Calcium 8.0 mg/dl (8.6-10.4) L 06/22/18 07:03 Phosphorus 3.4 mg/dL (2.5-4.5) 06/22/18 07:03 Magnesium 1.6 mg/dL (1.6-2.3) 06/22/18 07:03 Total Bilirubin 0.5 mg/dL (0.2-1.3) 06/22/18 07:03 AST 51 U/L (14-36) H 06/22/18 07:03 ALT 61 U/L (9-52) H 06/22/18 07:03 Alkaline Phosphatase 65 U/L (38-126) 06/22/18 07:03 Total Creatine Kinase 53 U/L (30-135) 06/15/18 01:03 CK-MB (Mass) 0.85 ng/mL (0.0-3.38) 06/15/18 01:03 Troponin I 0.0150 ng/mL (0.00-0.120) 06/15/18 01:03 Total Protein 5.3 g/dL (6.3-8.3) L 06/22/18 07:03 Albumin 2.8 g/dL (3.5-5.0) L 06/22/18 07:03 Globulin 2.6 gm/dL (2.2-3.9) 06/22/18 07:03 Albumin/Globulin Ratio 1.1 (1.0-2.1) 06/22/18 07:03 Amylase 120 U/L (30-110) H 06/20/18 20:11 Lipase 163 U/L (23-300) 06/20/18 20:11 Carcinoembryonic Ag 4.9 ng/mL (0-3.0) H 06/20/18 20:11 CA 125 Antigen 25.7 U/mL (0-35) 06/20/18 20:11 25-OH Vitamin D Total 27.5 NG/ML (30.0-100.0) L 06/19/18 09:24 TSH 3rd Generation 2.47 mIU/L (0.46-4.68) 06/20/18 12:57 Urine Color Yellow (YELLOW) 06/14/18 21:37 Urine Clarity Hazy (Clear) 06/14/18 21:37 Urine pH 6.0 (5.0-8.0) 06/14/18 21:37 Ur Specific [place] 1.016 (1.003-1.030) 06/14/18 21:37 Urine Protein 1+ mg/dL (NEGATIVE) H 06/14/18 21:37 Urine Glucose (UA) Normal mg/dL (Normal) 06/14/18 21:37 Urine Ketones 2+ mg/dL (NEGATIVE) H 06/14/18 21:37 Urine Blood 2+ (NEGATIVE) H 06/14/18 21:37 Urine Nitrate Negative (NEGATIVE) 06/14/18 21:37 Urine Bilirubin Negative (NEGATIVE) 06/14/18 21:37 Urine Urobilinogen Normal mg/dL (0.2-1.0) 06/14/18 21:37 Ur Leukocyte Esterase 2+ [place]/uL (Negative) H 06/14/18 21:37 Urine WBC (Auto) 10 /hpf (0-5) H 06/14/18 21:37 Urine RBC (Auto) 11 /hpf (0-3) H 06/14/18 21:37 Amorphous Sediment Rare /ul (<OCC) H 06/14/18 21:37 Urine Bacteria Rare (<OCC) 06/14/18 21:37 Hyaline Casts 6-10 /lpf (0-2) H 06/14/18 21:37 Urine HCG, Qual Negative (NEGATIVE) 06/21/18 22:38 Salicylates < 1.0 mg/dL 1 06/14/18 19:39 Urine Opiates Screen Negative (NEGATIVE) 06/14/18 21:37 Urine Methadone Screen Negative (NEGATIVE) 06/14/18 21:37 Acetaminophen < 10.0 ug/mL (10.0-30.0) L 06/14/18 19:39 Ur Barbiturates Screen Negative (NEGATIVE) 06/14/18 21:37 Ur Phencyclidine Scrn Negative (NEGATIVE) 06/14/18 21:37 Ur Amphetamines Screen Negative (NEGATIVE) 06/14/18 21:37 U Benzodiazepines Scrn Negative (NEGATIVE) 06/14/18 21:37 U Oth Cocaine Metabols Negative (NEGATIVE) 06/14/18 21:37 U Cannabinoids Screen Negative (NEGATIVE) 06/14/18 21:37 Alcohol, Quantitative < 10 mg/dl (0-10) 06/14/18 19:39 - Hospital Course Hospital Course: Upon Admission Patient is a 57yo F w/ no PMhx who is coming into [facility] [place] psychiatry for depression/anxiety. The patient states that for the past 2 weeks she has felt much more lethargic, down in the dumps, with the wish to hurt herself which is why she eventually came to the hospital. She denies any symptoms currently other than depressive/anxious symptoms. Denies AV Hallucinations, or current SI/HI. She denies fevers/chills, PEREZ, CP, SOB, abdominal pain, N/V/D dysuria,freq,urg or lower extremity swelling/pain. Hospital Course Patient is a 57 yo female who was initially admitted to psych unit for depression/anxiety symptoms. Upon labs, it was found that patient was severely malnutrition with multiple electrolyte abnormalities. Patient was transferred to medical floor for correction of electrolyte abnormalities. Patient was replete and GI was consulted due to patient history of 20-30 lb weight loss, abdominal pain, and continued nausea. EGD/CSPY was done showing esophagitis with candidiasis, gastritis, colitis, and spastic stomach (IBS). Patient's power of a ttorney offered information during stay about how patient has been going to multiple different hospitals for past 2-3 years with progressive isolative behavior. Patient's power of family law attorney states that patient has not been taking care of home with no feeding, restricted social contact, and not participating in hobbies (basketball). Patient was transferred back to psych for ongoing treatment of her depression/anxiety issues. Discharge Plan 1. Patient is stable for transfer to psych unit as per Dr. Capellan. 2. Patient is educated to follow up outpatient with GI specialist, Dr. Cuenca, within the next 2 weeks for results of her biopsy and CT abdomen and pelvis imaging. 3. Patient should resume all of her home medications as prescribed. Patient should increase her fiber intake, continue Diflucan 200mg po daily (started 11- 20 for a total of 7 days), and use Analpram HC cream 2.5% externally near anal canal for twice a day for next ten weeks. 4. Patient should take her psychiatric medications as recommended by psychiatrist. 5. Patient should return to hospital if symptoms worsen or recur. Patient was educated about the plan as above and agrees. Disclaimer: Written above is a shortened synopsis of patient's current hospital admission. For full report refer to EMR. Discharge Exam - Head Exam Head Exam: NORMAL INSPECTION, NORMOCEPHALIC - Additional Findings Additional findings: - Constitutional Appears: Non-toxic, No Acute Distress - Head Exam Head Exam: NORMAL INSPECTION, NORMOCEPHALIC - Eye Exam Eye Exam: EOMI, Normal appearance. absent: Nystagmus, Scleral icterus - ENT Exam ENT Exam: Mucous Membranes Dry - Respiratory Exam Respiratory Exam: Clear to Ausculation Bilateral, NORMAL BREATHING PATTERN. absent: Accessory Muscle Use, Rales, Rhonchi, Wheezes - Cardiovascular Exam Cardiovascular Exam: REGULAR RHYTHM, +S1, +S2. absent: Tachycardia, Murmur - GI/Abdominal Exam GI & Abdominal Exam: Soft, Tenderness, Normal Bowel Sounds. absent: Distended, Firm, Guarding, Rigid Additional comments: suprapubic tenderness - Extremities Exam Extremities Exam: Normal Inspection. absent: Calf Tenderness, Pedal Edema - Neurological Exam Neurological Exam: Alert, Awake, Oriented x3 - Psychiatric Exam Psychiatric exam: Normal Affect, Normal Mood - Skin Skin Exam: Intact, Normal Color Discharge Plan - Discharge Medications Prescriptions: Hydrocortisone/Pramoxine [Analpram Hc 2.5%-1% Crm Single] 4 gm RC BID 70 Days cream.[email or web address] - Follow Up Plan Condition: GOOD Disposition: DISCHARGE TO PSYCH HOSPITAL Patient education suggested?: Yes Additional Instructions: 1. Patient is stable for transfer to psych unit as per Dr. Capellan. 2. Patient is educated to follow up outpatient with GI specialist, Dr. Cuenca, within the next 2 weeks for results of her biopsy and CT abdomen and pelvis imaging. 3. Patient should resume all of her home medications as prescribed. Patient should increase her fiber intake, continue Diflucan 200mg po daily (started 11- 20 for a total of 7 days), and use Analpram HC cream 2.5% externally near anal canal for twice a day for next ten weeks. 4. Patient should take her psychiatric medications as recommended by psychiatrist. 5. Patient should return to hospital if symptoms worsen or recur. Patient was educated about the plan as above and agrees. Referrals: Maria Fernanda Cuenca [Staff Provider] -
[2018-06-23] MEDS: Pantoprazole 40 mg EC Tab PO SCH (09:31)
[2018-06-23] MEDS ORDERED: Vitamin A/D oint 60G TP PRN ×2 (10:42→13:16)
--- NOTE | 2018-06-23 12:36 | PN ---
DATE: 06/23/2018 LOCATION: 525. SUBJECTIVE: This is a 57-year-old female post upper and lower endoscopy with reported mood and affect remain the same as before with no complaint of significant abdominal pain, bleeding, chest pain, or palpitation or significant shortness of breath. The entire chart is reviewed including but not limited to the most recent lab and radiology study results, current and previous medication list, current and previous medical events and the patient pathology reports from upper and lower endoscopy still pending. PHYSICAL EXAMINATION: GENERAL: A 57-year-old female appeared to be quiet, afebrile with pulse of 92, respiratory rate 18 to 20, blood pressure 120/78. HEENT: Pale, dry oral mucous membrane. Nonicteric sclerae. LUNGS: Few scattered crepitation. Decreased air entry at bases. HEART: Positive S1 and S2. ABDOMEN: Soft. Bowel sounds are present. No mass or organomegaly. No rebound tenderness or guarding. EXTREMITIES: Without significant edema, clubbing, or cyanosis. NEUROLOGIC: No reported new neurological deficits. IMPRESSION: 1. Reexacerbation of peptic ulcer disease. 2. Mild esophageal candidiasis with gastritis as well as duodenitis. 3. Left sided colitis with internal hemorrhoid and evidence of dysplastic colon. Past medical history as mentioned above. It has to be mentioned that the gastric biopsy was negative for Helicobacter pylori infection. SUGGESTION: 1. Continue current management. 2. Proton pump inhibitors. 3. Antireflux measure. 4. Further recommendation to follow. Maria Fernanda Noonan MD
--- NOTE | 2018-06-23 15:07 | PCM.PYCHPN ---
Psychiatric Progress Note - Psychiatric Progress Note Patient seen today, length of contact: 15 min Patient Chief Complaint: I'm feeling little better. Problems Identified/Issues Discussed: Patient seen, chart reviewed, case discussed with the staff. Issues related to illness and treatment were discussed with the patient and staff. Reported compliant with treatment with no adverse effects. Tolerating treatment very well. Reported feeling little better. Awake, alert and oriented 3. Calm and cooperative with good eye contact. Mood reported as okay. Affect appropriate. Treatment discussed with the patient. Needs more time for stabilization. Aftercare discussed with the patient. Denied any delusions, auditory or visual hallucinations, suicidal ideations or homicidal ideations at the time of evaluation. Medical Problems: None reported Diagnostic Results: Reviewed DSM 5 Symptoms Update: Some improvement with treatment Medication Change: No Medical Record Reviewed: Yes Mental Status Examination - Cognitive Function Orientation: Person, Place, Situation, Time Memory: Intact Attention: WNL Concentration: WNL Association: [facility] Fund of Knowledge: [facility] Decription of patient's judgement and insights: Fair - Mood Mood: Anxious - Affect Affect: Other (Appropriate) - Speech Speech: Appropriate - Formal Thought Process Formal Thought Process: No Impairment Psychotic Thoughts and Behaviors: None - Suicidal Ideation Suicidal Ideation: No - Homicidal Ideation Homicidal Ideation: No Goal/Treatment Plan - Goal/Treatment Plan Need for Continued Stay: Remain at risks for inpatient hospitalization, Discharge may exacerbated symptoms, Severe functional impairment Progress Toward Problem(s) and Goals/Treatment Plan: Patient education. Supportive therapy. Continue treatment as before. Estimated Date of D/C: 06/27/18 - Smoking Cessation Smoking Cessation Initiated: No Reason for not providing: Patient doesn't smoke cigarettes.
[2018-06-23 17:23] LABS: BASO # 0.1 K/uL (0.0-0.2); BASO % 1.4 % (0.0-2.0); EOS # 0.1 K/uL (0.0-0.7); EOS % 1.5 % (0.0-4.0); HEMOGLOBIN 11.3 g/dL (11.0-16.0); LYMPH # 2.7 K/uL (1.0-4.3); LYMPH % 32.8 % (20.0-40.0); MEAN CELL VOLUME 86.3 fL (81.0-99.0); MEAN CORPUSCULAR HEMOGLOBIN 28.8 pg (27.0-31.0); MEAN CORPUSCULAR HGB CONC 33.4 g/dL (33.0-37.0); MEAN PLATELET VOLUME 8.2 fL (7.2-11.7); MONO # 0.7 K/uL (0.0-0.8); MONO % 8.5 % (0.0-10.0); NEUT # 4.5 K/uL (1.8-7.0); NEUT % 55.8 % (50.0-75.0); NRBC % 0.1 % (0.0-2.0); RBC 3.91 Mil/uL (3.80-5.20); RED CELL DISTRIBUTION WIDTH 15.6 % (11.5-14.5); WHITE BLOOD COUNT 8.1 K/uL (4.8-10.8)
[2018-06-23 17:39] LABS: ALB/GLOB RATIO 1.1 (1.0-2.1); ALBUMIN 3.3 g/dL (3.5-5.0); ALT/SGPT 59 U/L (9-52); AST/SGOT 37 U/L (14-36); BLOOD UREA NITROGEN 14 mg/dL (7-17); GFR NON-AFRICAN AMERICAN > 60
[2018-06-23] MEDS: Vitamins A & D Oint UD Foilpak EXT PRN (22:47)
[2018-06-24] MEDS: Pantoprazole 40 mg EC Tab PO SCH (09:42)
--- NOTE | 2018-06-24 12:02 | PCM.PYCHPN ---
Psychiatric Progress Note - Psychiatric Progress Note Patient seen today, length of contact: 15 min Patient Chief Complaint: "Not bad" Problems Identified/Issues Discussed: The pt is seen, chart reviewed, case discussed with staff. Support and psychoeducation given, CBT used briefly No new symptoms reported, improving slowly and needs more time No SEs from medications, risks discussed. She is still reluctant and may stop after d/c After care discussed. Her guardian wants to transfer her to a NH but she is NOT eligible due to not having very serious psych sxs, and improving. She may benefit from day program Medication Change: Yes Medical Record Reviewed: Yes Mental Status Examination - Cognitive Function Orientation: Person, Place, Situation, Time Memory: Intact Attention: WNL Concentration: Poor Association: WNL Fund of Knowledge: Poor - Mood Mood: Depressed, Anxious - Affect Affect: Constricted, Depressed - Speech Speech: Appropriate - Formal Thought Process Formal Thought Process: Paranoia - Suicidal Ideation Suicidal Ideation: No - Homicidal Ideation Homicidal Ideation: No Goal/Treatment Plan - Goal/Treatment Plan Need for Continued Stay: Severe depression anxiety, Discharge may exacerbated symptoms, Severe functional impairment Progress Toward Problem(s) and Goals/Treatment Plan: Continue meds Support and psychoed Groups and activities Indiv tx Refer to day program Estimated Date of D/C: 06/27/18
[2018-06-24] MEDS ORDERED: Magnesium Oxide 400 mg Tab UD PO SCH (13:15)
[2018-06-24 17:30] LABS: BASO % 0.4 % (0.0-2.0); EOS # 0.1 K/uL (0.0-0.7); EOS % 1.5 % (0.0-4.0); HEMOGLOBIN 11.1 g/dL (11.0-16.0); LYMPH # 2.8 K/uL (1.0-4.3); MEAN CELL VOLUME 86.5 fL (81.0-99.0); MEAN CORPUSCULAR HEMOGLOBIN 28.5 pg (27.0-31.0); MEAN PLATELET VOLUME 8.1 fL (7.2-11.7); MONO # 0.4 K/uL (0.0-0.8); MONO % 4.8 % (0.0-10.0); NEUT # 4.9 K/uL (1.8-7.0); NEUT % 59.3 % (50.0-75.0); RBC 3.91 Mil/uL (3.80-5.20); RED CELL DISTRIBUTION WIDTH 15.8 % (11.5-14.5); WHITE BLOOD COUNT 8.2 K/uL (4.8-10.8)
[2018-06-24 17:50] LABS: ALB/GLOB RATIO 1.3 (1.0-2.1); ALBUMIN 3.6 g/dL (3.5-5.0); ALT/SGPT 48 U/L (9-52); AST/SGOT 38 U/L (14-36); BLOOD UREA NITROGEN 16 mg/dL (7-17); CALCIUM 8.1 mg/dl (8.6-10.4); GFR NON-AFRICAN AMERICAN > 60
[2018-06-25] MEDS: Pantoprazole 40 mg EC Tab PO SCH (09:21)
[2018-06-25] MEDS: Magnesium Oxide 400 mg Tab UD PO SCH (16:00)
--- NOTE | 2018-06-25 16:13 | PCM.PYCHPN ---
Psychiatric Progress Note - Psychiatric Progress Note Patient seen today, length of contact: 15 min Patient Chief Complaint: I'm feeling better. Problems Identified/Issues Discussed: Patient seen, chart reviewed, case discussed with the staff. Issues related to illness and treatment were discussed with the patient and staff. Reported compliant with treatment with no adverse effects. Tolerating treatment very well. Reported feeling better than before. Awake, alert and oriented 3. Calm and cooperative with good eye contact. Mood reported as okay. Affect appropriate. Treatment discussed with the patient. Needs more time for stabilization. Aftercare discussed with the patient. Denied any delusions, auditory or visual hallucinations, suicidal ideations or homicidal ideations at the time of evaluation. Medical Problems: None reported Diagnostic Results: Reviewed DSM 5 Symptoms Update: Some improvement with treatment. Medication Change: No Medical Record Reviewed: Yes Mental Status Examination - Cognitive Function Orientation: Person, Place, Situation, Time Memory: Intact Attention: WNL Concentration: WNL Association: [facility] Fund of Knowledge: [facility] Decription of patient's judgement and insights: Fair - Mood Mood: Anxious (Less than before) - Affect Affect: Other (Appropriate) - Speech Speech: Appropriate - Formal Thought Process Formal Thought Process: No Impairment Psychotic Thoughts and Behaviors: None - Suicidal Ideation Suicidal Ideation: No - Homicidal Ideation Homicidal Ideation: No Goal/Treatment Plan - Goal/Treatment Plan Need for Continued Stay: Remain at risks for inpatient hospitalization, Discharge may exacerbated symptoms, Severe functional impairment Progress Toward Problem(s) and Goals/Treatment Plan: Patient education. Supportive therapy. Continue treatment as before. Patient will go to [facility] for follow-up care after discharge from the hospital. Estimated Date of D/C: 06/27/18 - Smoking Cessation Smoking Cessation Initiated: No Reason for not providing: Patient didn't smokes cigarettes.
[2018-06-25 17:00] LABS: BASO # 0.1 K/uL (0.0-0.2); BASO % 0.6 % (0.0-2.0); EOS # 0.1 K/uL (0.0-0.7); EOS % 1.4 % (0.0-4.0); HEMOGLOBIN 10.2 g/dL (11.0-16.0); LYMPH % 34.7 % (20.0-40.0); MEAN CELL VOLUME 86.2 fL (81.0-99.0); MEAN CORPUSCULAR HEMOGLOBIN 28.3 pg (27.0-31.0); MEAN CORPUSCULAR HGB CONC 32.9 g/dL (33.0-37.0); MEAN PLATELET VOLUME 8.3 fL (7.2-11.7); MONO # 0.5 K/uL (0.0-0.8); MONO % 5.8 % (0.0-10.0); NEUT # 4.9 K/uL (1.8-7.0); NEUT % 57.5 % (50.0-75.0); NRBC % 0.1 % (0.0-2.0); RBC 3.59 Mil/uL (3.80-5.20); WHITE BLOOD COUNT 8.5 K/uL (4.8-10.8)
[2018-06-25 17:14] LABS: ALB/GLOB RATIO 1.1 (1.0-2.1); ALBUMIN 3.1 g/dL (3.5-5.0); ALT/SGPT 50 U/L (9-52); AST/SGOT 36 U/L (14-36); BLOOD UREA NITROGEN 14 mg/dL (7-17); CALCIUM 7.8 mg/dl (8.6-10.4); GFR NON-AFRICAN AMERICAN > 60
--- NOTE | 2018-06-26 01:01 | CON ---
DATE: 06/20/[address] Noonan to Dr. Milton Conroy. I was called for a GI consultation by the admitting MD. The patient is seen and fully examined on 06/20/2018 as requested by the admitting medical staff. A short handwriting consultation sheet left in the chart at the time of my GI consultation on 06/20/2018. The entire chart is reviewed, including, but not limited to most recent lab and radiology study results, current and the previous medication list, current and the previous medical events, allergy to medication list as well as all the available current and the previous medical records. HISTORY OF PRESENT ILLNESS: This is a 57-year-old female with a known history of apparently depression, was admitted to the hospital through the emergency room with a main complaint of generalized weakness and malaise, abdominal pain on and off, postprandial abdominal distention, loss of appetite with nausea, intermittent period of dyspepsia with recent change of bowel movement habit. The patient denied any actual chest pain, palpitation, significant recent history of shortness of breath, chills, or fever, but recent body weight loss. No reported homicidal ideas as per the patient herself and records. POST MEDICAL HISTORY: Including mainly hypertension, depression, and severe anxiety syndrome. FAMILY HISTORY: Unknown. SOCIAL HISTORY: No reported recent history of cigarette smoking or alcohol intake. CURRENT MEDICATIONS: Post admission medication list reviewed. ALLERGIES TO MEDICATION: UNCLEAR. LABORATORY DATA: Initial blood workup at the time of the admission showed mild increase of hemoglobin 16, hematocrit 47 believed to be secondary to hemoconcentration with blood glucose level 145, BUN 34 with creatinine of 0.8, and potassium 2.8. PHYSICAL EXAMINATION: GENERAL: A 57-year-old female appears to be awake, alert, oriented. VITAL SIGNS: Afebrile with stable vital signs including respiratory rate of 16-18, appears to be mildly cachectic. HEENT: Showed dry oral mucous membrane. Nonicteric sclerae. LUNGS: Few scattered crepitation. Decreased air entry at bases. HEART: Positive S1 and S2. ABDOMEN: Soft with generalized [id number] tenderness and mild distention. No mass or organomegaly. No rebound tenderness or guarding. RECTAL: The patient refused. EXTREMITIES: Without edema, clubbing, or cyanosis. NEUROLOGIC: No reported new neurological deficits, sensory or motor. IMPRESSION: 1. Abdominal pain with nausea and loss of appetite, to rule out gastric versus duodenal ulcer. 2. To rule out occult gastrointestinal malignancy with recent history of mild body weight loss and change of bowel movement habit as reported. 3. Past medical history, including, but not limited to hypertension, anxiety syndrome, and depression. SUGGESTIONS: 1. Agree with your plan. 2. Proton pump inhibitors. 3. Sectional abdominal and pelvic CAT scan. 4. Cancer markers. 5. Zofran IV. 6. Peripheral hyperalimentation. 7. Endoscopic evaluation of the GI tract when the patient is more stable clinically. 8. Antireflux measure. 9. Psychiatric reevaluation. Further recommendation to follow post endoscopy. Thank you for letting me to participate in your patient's case management. Maria Fernanda Noonan MD
[2018-06-26] MEDS: Magnesium Oxide 400 mg Tab UD PO SCH (10:14)
[2018-06-26] MEDS: Pantoprazole 40 mg EC Tab PO SCH (10:14)
--- NOTE | 2018-06-26 12:32 | PCM.PYCHPN ---
Psychiatric Progress Note - Psychiatric Progress Note Patient seen today, length of contact: 15 min Patient Chief Complaint: "Not bad" Problems Identified/Issues Discussed: The pt is seen Still down, anxious and odd Support given Not suicidal Has some medical issues - worried Medication Change: Yes Medical Record Reviewed: Yes Mental Status Examination - Cognitive Function Orientation: Person, Place, Situation, Time Memory: Intact Attention: WNL Concentration: WNL Association: WNL Fund of Knowledge: WNL - Mood Mood: Anxious (Less than before) - Affect Affect: Other (Appropriate) - Speech Speech: Appropriate - Formal Thought Process Formal Thought Process: No Impairment - Suicidal Ideation Suicidal Ideation: No - Homicidal Ideation Homicidal Ideation: No Goal/Treatment Plan - Goal/Treatment Plan Need for Continued Stay: Remain at risks for inpatient hospitalization, Discharge may exacerbated symptoms, Severe functional impairment Progress Toward Problem(s) and Goals/Treatment Plan: Continue meds Support and psychoed Groups and activities Indiv tx Refer to day program Estimated Date of D/C: 06/27/18
[2018-06-26] MEDS: Calcium-Vit D 250 mg-125 Units Tab UD PO SCH (13:04)
[2018-06-27 07:24] LABS: BASO % 0.2 % (0.0-2.0); EOS # 0.1 K/uL (0.0-0.7); EOS % 1.8 % (0.0-4.0); HEMOGLOBIN 9.8 g/dL (11.0-16.0); LYMPH # 2.7 K/uL (1.0-4.3); LYMPH % 33.9 % (20.0-40.0); MEAN CELL VOLUME 86.1 fL (81.0-99.0); MEAN CORPUSCULAR HEMOGLOBIN 29.4 pg (27.0-31.0); MEAN CORPUSCULAR HGB CONC 34.1 g/dL (33.0-37.0); MEAN PLATELET VOLUME 7.8 fL (7.2-11.7); MONO # 0.5 K/uL (0.0-0.8); MONO % 6.9 % (0.0-10.0); NEUT # 4.6 K/uL (1.8-7.0); NEUT % 57.2 % (50.0-75.0); RBC 3.35 Mil/uL (3.80-5.20); RED CELL DISTRIBUTION WIDTH 16.8 % (11.5-14.5)
[2018-06-27 07:53] LABS: ALB/GLOB RATIO 1.1 (1.0-2.1); ALBUMIN 2.8 g/dL (3.5-5.0); ALT/SGPT 50 U/L (9-52); AST/SGOT 40 U/L (14-36); BLOOD UREA NITROGEN 12 mg/dL (7-17); CALCIUM 7.9 mg/dl (8.6-10.4); GFR NON-AFRICAN AMERICAN > 60
--- NOTE | 2018-06-27 10:12 | PCM.PYCHPN ---
Psychiatric Progress Note - Psychiatric Progress Note Patient seen today, length of contact: 17 min Patient Chief Complaint: "Anxious, I don't feel well" Problems Identified/Issues Discussed: The pt is seen, chart reviewed, case discussed with staff. The pt is compliant with medications and reports no side-effects. Symptoms are improving but needs more time to stabilize. Pt attends groups and activities. Support given, psycho-education provided. After care discussed. Medical consult asked again - she has edema Medication Change: Yes Medical Record Reviewed: Yes Mental Status Examination - Cognitive Function Orientation: Person, Place, Situation, Time Memory: Intact Attention: WNL Concentration: WNL Association: [facility] Fund of Knowledge: [facility] - Mood Mood: Anxious (Less than before) - Affect Affect: Other (Appropriate) - Speech Speech: Appropriate - Formal Thought Process Formal Thought Process: No Impairment - Suicidal Ideation Suicidal Ideation: No - Homicidal Ideation Homicidal Ideation: No Goal/Treatment Plan - Goal/Treatment Plan Need for Continued Stay: Remain at risks for inpatient hospitalization, Di [place] may exacerbated symptoms, Severe functional impairment Progress Toward Problem(s) and Goals/Treatment Plan: Continue meds Support and psychoed Groups and activities Indiv tx Refer to day program Estimated Date of D/C: 06/29/18 If changed, why: not well yet
[2018-06-27] MEDS: Calcium-Vit D 250 mg-125 Units Tab UD PO SCH (10:40)
[2018-06-27] MEDS: Pantoprazole 40 mg EC Tab PO SCH (10:40)
[2018-06-27] MEDS: Magnesium Oxide 400 mg Tab UD PO SCH ×2 (10:43→13:26)
[2018-06-27] MEDS: Magnesium Chloride 64 mg ER Tab PO SCH (13:27)
[2018-06-27] MEDS ORDERED: Potassium Chloride 20 mEq ER Tab PO ONE ×3 (14:30→16:00)
--- NOTE | 2018-06-27 14:44 | CP.PCM.PN ---
<Lucia Stevens - Last Filed: 06/27/18 14:42> Subjective - Date & Time of Evaluation Date of Evaluation: 06/27/18 Time of Evaluation: 13:30 - Subjective Subjective: PGY-1 Lucia Stevens D.O. Medicine progress note for Dr. Conroy's service: Patient was seen and examined this afternoon. Hospitalists were asked to see patient again due to fatigue. Patient is complaining of pain everywhere. She is also complaining of bilateral leg swelling. She states she has nausea and early satiety. Objective - Vital Signs/Intake and Output Vital Signs (last 24 hours): Temp Pulse Resp BP Pulse Ox 98.6 F 114 H 18 102/64 98 06/27/18 06:41 06/27/18 06:41 06/27/18 06:41 06/27/18 06:41 06/25/18 06:27 - Medications Medications: Current Medications Calcium/Vitamin D (Oscal-D 250 Mg-125 Units Tab) 1 tab PO DAILY [facility] Last Admin: 06/27/18 10:40 Dose: 1 tab Escitalopram Oxalate (Lexapro) 10 mg PO DAILY [facility] Last Admin: 06/27/18 10:39 Dose: 10 mg Fluconazole (Diflucan) 200 mg PO DAILY [facility]; Protocol Last Admin: 06/27/18 10:40 Dose: 200 mg Hydroxyzine HCl (Atarax) 25 mg PO Q6 PRN PRN Reason: Agitation Magnesium Chloride (Slow-Mag) 64 mg PO DAILY [facility] Last Admin: 06/27/18 13:27 Dose: 64 mg Pantoprazole Sodium (Protonix Ec Tab) 40 mg PO DAILY [facility] Last Admin: 06/27/18 10:40 Dose: 40 mg Risperidone (Risperdal Tab) 2 mg PO QPM [facility] Last Admin: 06/26/18 17:24 Dose: 2 mg Trazodone HCl (Desyrel) 50 mg PO HS [facility] Last Admin: 06/26/18 22:40 Dose: 50 mg Vitamin A (Vitamin A & D Oint Ud Foilpak) 1 ea EXT Q8H PRN PRN Reason: Dry skin Last Admin: 06/23/18 22:47 Dose: 1 ea - Labs Labs: 06/27/18 07:17 06/27/18 07:17 - Constitutional Appears: No Acute Distress, Unkempt, Older Than Stated Age - Head Exam Head Exam: ATRAUMATIC, NORMAL INSPECTION - Eye Exam Eye Exam: EOMI, Normal appearance, PERRL - ENT Exam ENT Exam: Mucous Membranes Moist - Neck Exam Neck Exam: Normal Inspection - Respiratory Exam Respiratory Exam: Clear to Ausculation Bilateral, NORMAL BREATHING PATTERN. absent: Accessory Muscle Use, Decreased Breath Sounds, Rales, Rhonchi, Wheezes, Respiratory Distress - Cardiovascular Exam Cardiovascular Exam: REGULAR RHYTHM, +S1, +S2 - GI/Abdominal Exam GI & Abdominal Exam: Soft, Tenderness (mild), Normal Bowel Sounds. absent: Distended, Firm - Rectal Exam Rectal Exam: Deferred - Extremities Exam Extremities Exam: Normal Inspection. absent: Joint Swelling, Pedal Edema, Tenderness - Neurological Exam Neurological Exam: Abnormal Gait (slow), Alert, Awake, CN II-XII Intact, Oriented x3 - Psychiatric Exam Psychiatric exam: Anxious - Skin Skin Exam: Dry, Intact, Normal Color, Warm Assessment and Plan - Assessment and Plan (Free Text) Assessment: Patient is a 57 yo female who is admitted to the psychiatric unit for anxiety and depression. She was hospitalized last weak for severe generalized weakness due to malnutrition/electrolyte abnormalities. She was also seen by GI for naus ea and vomiting and received an EGD and colonoscopy. Patient's POA is a friend who reported that patient is neglecting herself, becoming more isolative with signifciant anhedonia. Plan: Edema- patient c/o significant edema compared to baseline, trace pedal seen on exam - CXR pending - Lasix 20 mg PO x1 - K-Dur 40 mEq PO x1 Malnutrition with electrolyte disturbances, improving - Dietary supplements - Replace electrolytes PRN - Hypokalemia- resolved - Hypomagnesemia - Mag chloride 64 mg PO daily - Hypocalcemia, low vit D - Calcium/vit D - Hypoalbuminemia - PT Candidiasis of esophagitis - Diflucan 200 mg PO daily- 06/21-06/28 Gastritis, Colitis - Protonix 40 mg PO daily - Increase fiber intake - F/u GI in 2 weeks- may need CT - GI consulted (Bang) Asymptomatic bacteriuria - UCx 06/17- [facility] - Repeat Cx pending Depression and Anxiety - Admission to psychiatry unit - UDS, BAL, salicylates, acetaminophen negative - Lexapro 10 mg PO daily - Risperdal 2 mg PO daily - Trazodone 50 mg PO QHS - Atarax 25 mg PO Q6H PRN - Management as per psych Ppx: VTE: not indicated GI: PTX 40 mg PO daily Code status: full status Case was discussed with attending, Dr. Conroy. Medicine with sign off case at this time. Please reconsult if necessary. <Milton Conroy H - Last Filed: 06/27/18 15:35> Objective - Vital Signs/Intake and Output Vital Signs (last 24 hours): Temp Pulse Resp BP Pulse Ox 98.6 F 114 H 18 102/64 98 06/27/18 06:41 06/27/18 06:41 06/27/18 06:41 06/27/18 06:41 06/25/18 06:27 - Medications Medications: Current Medications Calcium/Vitamin D (Oscal-D 250 Mg-125 Units Tab) 1 tab PO DAILY [facility] Last Admin: 06/27/18 10:40 Dose: 1 tab Escitalopram Oxalate (Lexapro) 10 mg PO DAILY [facility] Last Admin: 06/27/18 10:39 Dose: 10 mg Fluconazole (Diflucan) 200 mg PO DAILY [facility]; Protocol Last Admin: 06/27/18 10:40 Dose: 200 mg Furosemide (Lasix) 20 mg PO ONCE ONE Stop: 06/27/18 16:01 Hydroxyzine HCl (Atarax) 25 mg PO Q6 PRN PRN Reason: Agitation Magnesium Chloride (Slow-Mag) 64 mg PO DAILY [facility] Last Admin: 06/27/18 13:27 Dose: 64 mg Pantoprazole Sodium (Protonix Ec Tab) 40 mg PO DAILY [facility] Last Admin: 06/27/18 10:40 Dose: 40 mg Potassium Chloride (K-Dur 20 Meq Er Tab) 20 meq PO ONCE ONE Stop: 06/27/18 16:01 Risperidone (Risperdal Tab) 2 mg PO QPM [facility] Last Admin: 06/26/18 17:24 Dose: 2 mg Trazodone HCl (Desyrel) 50 mg PO HS [facility] Last Admin: 06/26/18 22:40 Dose: 50 mg Vitamin A (Vitamin A & D Oint Ud Foilpak) 1 ea EXT Q8H PRN PRN Reason: Dry skin Last Admin: 06/23/18 22:47 Dose: 1 ea - Labs Labs: 06/27/18 07:17 06/27/18 07:17 Attending/Attestation - Attestation I have personally seen and examined this patient.: Yes I have fully participated in the care of the patient.: Yes I have reviewed all pertinent clinical information, including history, physical exam and plan: Yes Notes (Text): 06/27/18 15:34 Medical hospitalist: Patient was seen and examined by me, the above note by the program medical director and agree with the above by the program medical director. The patient was previously on psychiatry and transferred to the medical floors and treated for hypokalemia and then transferred back to psychiatry service. We were consulted again by psychiatry due to the patient continually reporting that she feels weak and tired. Reportedly psychiatry was concerned because the patient's hemoglobin was 9.8. It should be pointed out that the patient has just had an EGD as well as colonoscopy done and the biopsy were negative for malignancy. It did show that patient has internal hemmoroids. For now would suggest monitor Hgb. She does not need blood transfusion at this time. When we came and saw her she is able to ambulate slowly without any assistance. She has a lot of complaints. She reports ongoing fatigue and tiredness. She also complained about lower extremity edema. She stopped us in the hallway asking when everything would be improving and we explained to her that we suspect that she has been malnourished for quite sometime before comming to the hospital and that the EGD and colonscopy were stable and that the biopsy were negative for maligancy We will give the patient 1 time dose of Lasix for the lower extremity edema, also additional potassium. Also check a chest x-ray as well. Milton Conroy
--- NOTE | 2018-06-27 16:28 | RAD ---
Date of service: 06/27/2018 HISTORY: ? Fluid overload COMPARISON: None FINDINGS: LUNGS: No active pulmonary disease. PLEURA: No significant pleural effusion identified, no pneumothorax apparent. Mild biapical pleural thickening CARDIOVASCULAR: No aortic atherosclerotic calcification present. Normal cardiac size. No pulmonary vascular congestion. OSSEOUS STRUCTURES: No significant abnormalities. VISUALIZED UPPER ABDOMEN: Normal. OTHER FINDINGS: None. IMPRESSION: No active disease.
[2018-06-27] MEDS ORDERED: Magnesium Oxide 400 mg Tab UD PO SCH (18:00)
[2018-06-27] MEDS ORDERED: Calcium Carbonate 500 mg Chewable Antacid Tab PO SCH (18:00)
[2018-06-27 18:26] LABS: SQUAMOUS EPITHIAL < 1 /hpf (0-5); URINE BILIRUBIN NEGATIVE (NEGATIVE); URINE BLOOD NEGATIVE (NEGATIVE); URINE CLARITY Clear (Clear); URINE COLOR Straw (YELLOW); URINE GLUCOSE (UA) NORMAL (Normal); URINE LEUKOCYTE ESTERASE NEG Leu/uL (Negative); URINE PROTEIN NEGATIVE (NEGATIVE); URINE UROBILINOGEN NORMAL mg/dL (0.2-1.0)
[2018-06-28 08:08] LABS: HEMOGLOBIN 9.6 g/dL (11.0-16.0); MEAN CELL VOLUME 86.5 fL (81.0-99.0); MEAN CORPUSCULAR HEMOGLOBIN 29.7 pg (27.0-31.0); MEAN CORPUSCULAR HGB CONC 34.4 g/dL (33.0-37.0); MEAN PLATELET VOLUME 7.6 fL (7.2-11.7); RBC 3.24 Mil/uL (3.80-5.20); RED CELL DISTRIBUTION WIDTH 16.8 % (11.5-14.5); WHITE BLOOD COUNT 8.2 K/uL (4.8-10.8)
[2018-06-28 08:31] LABS: ALB/GLOB RATIO 1.1 (1.0-2.1); ALBUMIN 2.8 g/dL (3.5-5.0); ALT/SGPT 49 U/L (9-52); AST/SGOT 35 U/L (14-36); BLOOD UREA NITROGEN 18 mg/dL (7-17); CALCIUM 7.9 mg/dl (8.6-10.4); GFR NON-AFRICAN AMERICAN > 60
[2018-06-28] MEDS: Pantoprazole 40 mg EC Tab PO SCH (10:12)
[2018-06-28] MEDS: Calcium-Vit D 250 mg-125 Units Tab UD PO SCH (10:12)
[2018-06-28] MEDS: Vitamins A & D Oint UD Foilpak EXT PRN (12:11)
[2018-06-28] MEDS: Magnesium Chloride 64 mg ER Tab PO SCH (12:12)
[2018-06-29] MEDS: Pantoprazole 40 mg EC Tab PO SCH (10:22)
[2018-06-29] MEDS: Calcium-Vit D 250 mg-125 Units Tab UD PO SCH (10:22)
[2018-06-29] MEDS: Magnesium Chloride 64 mg ER Tab PO SCH (10:22)
--- NOTE | 2018-06-29 12:11 | PCM.PYCHPN ---
Psychiatric Progress Note - Psychiatric Progress Note Patient seen today, length of contact: 15 min Patient Chief Complaint: "Not well at all" Problems Identified/Issues Discussed: The pt is seen, chart reviewed, case discussed with staff. Support and psychoeducation given, CBT used briefly No new symptoms reported, improving slowly and needs more time She is worried about her edema and fatigue Medicine is on board, help appreciated No SEs from medications, risks discussed. After care discussed Medication Change: Yes Medical Record Reviewed: Yes Mental Status Examination - Cognitive Function Orientation: Person, Place, Situation, Time Memory: Intact Attention: WNL Concentration: WNL Association: WNL Fund of Knowledge: WN - Mood Mood: Anxious (Less than before) - Affect Affect: Other (Appropriate) - Speech Speech: Appropriate - Formal Thought Process Formal Thought Process: No Impairment - Suicidal Ideation Suicidal Ideation: No - Homicidal Ideation Homicidal Ideation: No Goal/Treatment Plan - Goal/Treatment Plan Need for Continued Stay: Remain at risks for inpatient hospitalization, Discharge may exacerbated symptoms, Severe functional impairment Progress Toward Problem(s) and Goals/Treatment Plan: Continue meds Support and psychoed Groups and activities Indiv tx Refer to day program Estimated Date of D/C: 06/29/18
--- NOTE | 2018-06-29 13:08 | PCM.PYCHPN ---
Psychiatric Progress Note - Psychiatric Progress Note Patient seen today, length of contact: 16 min Patient Chief Complaint: "My body is not right, I feel depressed" Problems Identified/Issues Discussed: The pt is seen, chart reviewed, case discussed with staff. Support and psychoeducation given. Still depressed and anxious Her friend's involvement discussed. 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 After care discussed Medication Change: No Medical Record Reviewed: Yes Mental Status Examination - Cognitive Function Orientation: Person, Place, Situation, Time Memory: Intact Attention: WNL Concentration: WNL Association: WNL Fund of Knowledge: WNL - Mood Mood: Anxious (Less than before) - Affect Affect: Other (Appropriate) - Speech Speech: Appropriate - Formal Thought Process Formal Thought Process: No Impairment - Suicidal Ideation Suicidal Ideation: No - Homicidal Ideation Homicidal Ideation: No Goal/Treatment Plan - Goal/Treatment Plan Need for Continued Stay: Discharge may exacerbated symptoms, Severe functional impairment Progress Toward Problem(s) and Goals/Treatment Plan: Continue meds Support and psychoed Groups and activities Indiv tx Refer to day program Estimated Date of D/C: 07/01/18 If changed, why: still very depressed
[2018-06-29 13:54] LABS: BASO % 0.3 % (0.0-2.0); EOS # 0.2 K/uL (0.0-0.7); EOS % 2.3 % (0.0-4.0); HEMOGLOBIN 10.2 g/dL (11.0-16.0); LYMPH # 2.4 K/uL (1.0-4.3); LYMPH % 31.5 % (20.0-40.0); MEAN CELL VOLUME 87.4 fL (81.0-99.0); MEAN CORPUSCULAR HEMOGLOBIN 29.4 pg (27.0-31.0); MEAN CORPUSCULAR HGB CONC 33.7 g/dL (33.0-37.0); MEAN PLATELET VOLUME 8.3 fL (7.2-11.7); MONO # 0.5 K/uL (0.0-0.8); MONO % 6.9 % (0.0-10.0); NEUT # 4.5 K/uL (1.8-7.0); RBC 3.45 Mil/uL (3.80-5.20); RED CELL DISTRIBUTION WIDTH 17.2 % (11.5-14.5); WHITE BLOOD COUNT 7.6 K/uL (4.8-10.8)
[2018-06-29 14:14] LABS: ALBUMIN 3.3 g/dL (3.5-5.0); ALT/SGPT 59 U/L (9-52); AST/SGOT 37 U/L (14-36); BLOOD UREA NITROGEN 16 mg/dL (7-17); CALCIUM 7.9 mg/dl (8.6-10.4); GFR NON-AFRICAN AMERICAN > 60
[2018-06-29 14:53] LABS: ALB/GLOB RATIO 1.2 (1.0-2.1)
[2018-06-30 09:10] LABS: BASO # 0.1 K/uL (0.0-0.2); BASO % 1.2 % (0.0-2.0); EOS # 0.2 K/uL (0.0-0.7); EOS % 2.4 % (0.0-4.0); HEMOGLOBIN 10.8 g/dL (11.0-16.0); LYMPH # 2.5 K/uL (1.0-4.3); LYMPH % 31.2 % (20.0-40.0); MEAN CELL VOLUME 87.9 fL (81.0-99.0); MEAN CORPUSCULAR HEMOGLOBIN 29.4 pg (27.0-31.0); MEAN CORPUSCULAR HGB CONC 33.5 g/dL (33.0-37.0); MEAN PLATELET VOLUME 8.1 fL (7.2-11.7); MONO # 0.5 K/uL (0.0-0.8); MONO % 5.7 % (0.0-10.0); NEUT # 4.8 K/uL (1.8-7.0); NEUT % 59.5 % (50.0-75.0); RBC 3.67 Mil/uL (3.80-5.20); WHITE BLOOD COUNT 8.1 K/uL (4.8-10.8)
[2018-06-30] MEDS: Magnesium Chloride 64 mg ER Tab PO SCH (10:32)
[2018-06-30] MEDS: Calcium-Vit D 250 mg-125 Units Tab UD PO SCH (10:34)
[2018-06-30] MEDS: Pantoprazole 40 mg EC Tab PO SCH (10:36)
--- NOTE | 2018-06-30 11:35 | PCM.PYCHPN ---
Psychiatric Progress Note - Psychiatric Progress Note Patient seen today, length of contact: 16 min Patient Chief Complaint: "My body is not right, I feel depressed" Problems Identified/Issues Discussed: The pt is seen, chart reviewed, case discussed with staff. Support and psychoeducation given. Still depressed and anxious Her friend's involvement discussed. 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 After care discussed Medication Change: No Medical Record Reviewed: Yes Mental Status Examination - Cognitive Function Orientation: Person, Place, Situation, Time Memory: Intact Attention: WNL Concentration: WNL Association: WNL Fund of Knowledge: WNL - Mood Mood: Anxious (Less than before) - Affect Affect: Other (Appropriate) - Speech Speech: Appropriate - Formal Thought Process Formal Thought Process: No Impairment - Suicidal Ideation Suicidal Ideation: No - Homicidal Ideation Homicidal Ideation: No Goal/Treatment Plan - Goal/Treatment Plan Need for Continued Stay: Discharge may exacerbated symptoms, Severe functional impairment Progress Toward Problem(s) and Goals/Treatment Plan: Continue meds Support and psychoed Groups and activities Indiv tx Refer to day program Estimated Date of D/C: 07/01/18
--- NOTE | 2018-06-30 18:24 | CP.PCM.PCO ---
<Lucia Stevens - Last Filed: 06/30/18 18:24> Addendum Addendum: 06/30/18 18:24 Patient was seen and examined this afternoon with attending. We were asked by psychiatry to see patient again at her request. Patient is complaining of b/l leg swelling. She has 1+ edema up to ankles. CXR earlier this week did not show any signs of CHF. Explained to patient that she is malnourished and low albumin/protein is contributing to third spacing. Will give another one time dose of Lasix 20 mg PO. Upon discharge, patient will be given Rx for Lasix 20 mg PO QOD. She can follow-up at the [facility]. <Milton Conroy - Last Filed: 06/30/18 18:50> Addendum Addendum: Medical attending: Reviewed the above note by the resident and we came and saw the patient together and spoke with the patient. Patient was concerned about her CXRAY and we explained that she does not have fluid build up on her lungs/venous congestion and does not have cardiomegaly. The very likley reason for the swelling in lower extremity is the low protein as well as low albumin which leads to low oncotic pressure - and so it is easier now for the fluid to third space into the lower extremity. Ultimately she has to eat properly to restore protein and albumin. This takes time. In the mean time will give only small amounts of PO lasix Milton Conroy 06/30/18 18:47
[2018-07-01 06:13] VITALS: RESP 20
[2018-07-01] MEDS: Magnesium Chloride 64 mg ER Tab PO SCH (09:55)
[2018-07-01] MEDS: Calcium-Vit D 250 mg-125 Units Tab UD PO SCH (09:56)
[2018-07-01] MEDS: Pantoprazole 40 mg EC Tab PO SCH (09:56)
--- NOTE | 2018-07-01 12:50 | PCM.PYCHPN ---
Psychiatric Progress Note - Psychiatric Progress Note Patient seen today, length of contact: 16 min Patient Chief Complaint: "My body is not right, I feel depressed" Problems Identified/Issues Discussed: The pt is seen, chart reviewed, case discussed with staff. Support and psychoeducation given. Still depressed and anxious Her friend's involvement discussed. 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 After care discussed Medication Change: No Medical Record Reviewed: Yes Mental Status Examination - Cognitive Function Orientation: Person, Place, Situation, Time Memory: Intact Attention: WNL Concentration: WNL Association: WNL Fund of Knowledge: WNL - Mood Mood: Anxious (Less than before) - Affect Affect: Other (Appropriate) - Speech Speech: Appropriate - Formal Thought Process Formal Thought Process: No Impairment - Suicidal Ideation Suicidal Ideation: No - Homicidal Ideation Homicidal Ideation: No Goal/Treatment Plan - Goal/Treatment Plan Need for Continued Stay: Discharge may exacerbated symptoms, Severe functional impairment Progress Toward Problem(s) and Goals/Treatment Plan: Continue meds Support and psychoed Groups and activities Indiv tx Refer to day program Estimated Date of D/C: 07/01/18
[2018-07-02 06:17] VITALS: TEMP 98.6; O2SAT 99
[2018-07-02] MEDS: Magnesium Chloride 64 mg ER Tab PO SCH (09:19)
[2018-07-02] MEDS: Calcium-Vit D 250 mg-125 Units Tab UD PO SCH (09:19)
[2018-07-02] MEDS: Pantoprazole 40 mg EC Tab PO SCH (09:20)
[2018-07-02 15:27] VITALS: BP 115/76; PULSE 97
--- NOTE | 2018-07-02 20:18 | PCM.PYCHDC ---
Mental Status Examination - Mental Status Examination Description of patient's judgement and insight: Fair Psychotic Thoughts and Behaviors: None Discharge Summary - Discharge Note Reason for Hospitalization: Major depressive disorder recurrent severe Laboratory Data: Reviewed Consultations:: List each consultation separately and include: 1. Reason for request. 2. Findings. 3. Follow-up Summary of Hospital Course include:: 1. Description of specific treatment plan utilized for patients during their course of treatmen. 2. Summarize the time- course for resolution of acute symptoms and/or regressed behaviors. 3. Describe issues identified and worked on during hospitalization. 4. Describe medication utilized. 5. Describe medical problems identified and treated. 6. Reassessment of suicide risk Summary of Hospital Course: Pt is a 57 year old female who is single, lives alone, currently unemployed, was escorted to [facility] by her friend, because of increasingly depressed mood and was disorganized behavior. Patient was superficially cooperative and remained guarded about the details throughout the interview. She appeared paranoid, delusional and internally preoccupied. Pt states that she is here because she is feeling weak, has no appetite and has trouble sleeping for the past 4 days. She is a little nauseous and vomited a little last night. Pt denies fever, chills or cough. Pt has a history of anxiety that was diagnosed around 10 years ago. She was on medication for the anxiety but discontinued 1 year ago and cannot recall the name of the medication. Pt has been hospitalized for anxiety 2 times in the past. She was last hospitalized 13 years ago and stayed for 3-4 days. Pt denies having a history of depression but her friend who is also her power of securities attorney stated that she has had 1 depressive episode in the past with similar symptoms. Pt states that concentrating is hard and she has lost interest in things solely because she is not feeling well currently. she appeared depressed, hopeless, helpless, isolated and withdrawn. However she denies any suicidal ideation or any homicidal ideation. She denies any auditory or visual hallucinations or any paranoia. Pt denies use of alcohol, tobacco products, or illicit substances including heroin, marijuana, or cocaine. Past medical history: Denies Allergies: Levofloxacin, moxifloxacin HCl, amoxicillin trihydrate Surgical history: [place] Family psychiatric history: Denies Psychiatric history: Denies During her stay in the hospital patient was treated with citalopram and other supportive medications. During her stay patient's potassium went down and patient was on medical floor for treatment and then again transferred back to psych floor. Patient was treated with citalopram and other when necessary medications. Basically patient started feeling better. Patient was cleared medically. Today patient was stable and ready for discharge from the hospital. At the time of evaluation and discharge, patient was calm and cooperative. Awake, alert and oriented 3, no delusions, no auditory or visual hallucination. No suicidal ideation or homicidal ideations. Patient was discharged in a stable condition. - Final Diagnosis (DSM 5) Condition upon Discharge: GOOD Disposition: HOME/ ROUTINE Follow-up Treatment Plan: Patient will go to [facility] for follow-up care after discharge from the hospital. Prescriptions/Medication Reconciliation: RX: Calcium Carbonate/Vitamin D [Oscal-D 250 mg-125 Units Tab] 1 tab PO DAILY #30 tab RX: Escitalopram [Lexapro] 10 mg PO DAILY #30 tab Furosemide [Lasix] 20 mg PO QOD6 #15 tab Hydrocortisone/Pramoxine [Analpram Hc 2.5%-1% Crm Single] 4 gm RC BID 70 Days cream.[email or web address] RX: risperiDONE [RisperDAL Tab] 2 mg PO QPM #30 tab RX: traZODone [Desyrel] 50 mg PO HS PRN #30 tab PRN Reason: Insomnia - Smoking Cessation Smoking Cessation Medication prescribed: No - Antipsychotic Medications Pt discharged on 2 or more routine antipsychotic medications: No
== END 2018-07-02 19:10 | disposition home or self-care (01) | DRG 885 ==
LOC: C.ER 18:54 → C.5E 22:18 → C.9E 22:51 → C.5E 23:20 → C.6T 06-16 20:08 → C.5E 06-22 19:44
PROVIDERS: ADMIT Psychiatry & Neurology Psychiatry; ATTEND Psychiatry & Neurology Psychiatry
PROC: GZHZZZZ Group Psychotherapy (ICD-10-PCS; principal; 2018-06-14)
PROC: GZ58ZZZ Individual Psychotherapy, Cognitive-Behavioral (ICD-10-PCS; 2018-06-14)
PROC: GZ56ZZZ Individual Psychotherapy, Supportive (ICD-10-PCS; 2018-06-14)
PROC: 0DB88ZX Excision of Small Intestine, Via Natural or Artificial Opening Endoscopic, Diagnostic (ICD-10-PCS; 2018-06-21)
PROC: 0DD38ZX Extraction of Lower Esophagus, Via Natural or Artificial Opening Endoscopic, Diagnostic (ICD-10-PCS; 2018-06-21)
PROC: 0DD28ZX Extraction of Middle Esophagus, Via Natural or Artificial Opening Endoscopic, Diagnostic (ICD-10-PCS; 2018-06-21)
PROC: 0DBM8ZX Excision of Descending Colon, Via Natural or Artificial Opening Endoscopic, Diagnostic (ICD-10-PCS; 2018-06-22)
DX: F33.3 Major depressive disorder, recurrent, severe with psychotic symptoms (principal); E43 Unspecified severe protein-calorie malnutrition; B37.81 Candidal esophagitis; N39.0 Urinary tract infection, site not specified; E83.42 Hypomagnesemia; E87.6 Hypokalemia; I10 Essential (primary) hypertension; F41.9 Anxiety disorder, unspecified; K29.70 Gastritis, unspecified, without bleeding; K58.9 Irritable bowel syndrome, unspecified